=== PATIENT | female | born 1980 | race Caucasian/White ===

== ENCOUNTER 2024-06-19 02:28 | Inpatient (IN) ==
[2024-06-19] MEDS ORDERED: LIDOCAINE 1% LOCAL 20 ML VIAL INFIL PRN (02:58)
[2024-06-19] MEDS: LACTATED RINGER'S 1,000 ML IV PRN (03:15)
--- NOTE | 2024-06-19 03:30 | History & Physical Report ---
Date of Service June 19, 2024 Assessment & Plan (1) Term : Plan: Admit in labor anticipate normal delivery Admission and Anticipated Discharge Date Admission Date: June 19, 2024 History of Present Illness Chief Complaint: leakage of fluid Primary Care Provider: NO PCP 43 F P1001 at 38 weeks presents with onset of spontaneous rupture of membranes with clear fluid and onset of labor. GBS is negative. Allergies Allergy/AdvReac Type Severity Reaction Status Date / Time No Known Allergies Allergy Verified 04/20/21 14:52 Home Medications Medication Instructions Recorded Confirmed Type Benadryl Allergy PO 06/19/24 History 1 tab PO DAILY 06/19/24 06/19/24 History Patient History Surgical History [place] teeth removed Family History Grandfather (Paternal) Prostate cancer Grandfather (Maternal) Prostate cancer Father Diabetes Brother Depression Sister Depression Mother Depression Denies family history of Ovarian cancer Myocardial infarction Breast cancer Colorectal cancer Social History Smoking Status: Never smoker Second Hand Exposure: No; Do You Dip or Chew Tobacco: No; Hx Alcohol Use: No Hx Substance Use: No Preferred Language: Citizen Of The [place] Communication Ability: Effective Visual Impairment: No Limitations Hearing Ability: Normal Applications Developer Required: No Beliefs That Will Affect Care: None marital status: Current Living Situation: Spouse Current Living Situation Comment: spouse, 4yr old son current occupational status: employed 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 How many Children do You have: 1 Other Information That Helps Us Care for You: No Feels Safe at Home: Yes Safety Concerns: Feels Safe At This Time Childhood Exposure to Second-Hand Smoke: No Diet: regular caffeine: Yes during the past year weight has: decreased > 10 lbs Dental Care, Regularly: Yes Physical Activity Frequency: Daily Seatbelt Use: always Sunscreen Use: Yes Assistive Devices: Glasses OB History x1 GUARDIAN AD LITEM History neg Review of Systems All systems reviewed & are unremarkable except as noted in HPI & below Physical Exam Constitutional: WD/WN, vitals as above Eyes: PERRL, conjunctivae normal, anicteric sclerae Respiratory: normal respiratory effort, lungs clear to auscultation Cardiovascular: RRR, no murmur, no edema Gastrointestinal (Abdomen): Inspection/Auscultation: abdomen normal to inspection Musculoskeletal: Extremities: extremities normal to inspection Skin: no rashes, warm and dry Neurologic: patellar DTR's 2+ bilat, sensation intact Psychiatric: A+Ox3, euthymic affect Genitourinary: Manual OB Exam: + cervical dilation 5 cm and 6 cm and + amniotic fluid clear OB Exam Monitor Tracing: + external FHT monitor used, + external uterine monitor used, + category I and + normal FHT variability Results & Data Vital Signs (Past 12 Hours) Vital Signs Pulse Resp BP 06/19/24 03:06 18 06/19/24 02:50 82 114/60 Monitoring External Monitor Cat 1
[2024-06-19 03:46] LABS: Hematocrit (blood only) 36.5 % (37.0-47.0); Hemoglobin 12.6 g/dl (12.0-16.0); Mean Corpuscular Hemoglobin 27.8 pg (25.0-34.0); Mean Corpuscular Hgb Conc 34.5 g/dL (32.0-36.0); Mean Corpuscular Volume 80.6 fL (80.0-100.0); Platelet Count 220 K/uL (130-400); RDW Coefficient of Variation 13.6 % (11.5-14.5); RDW Standard Deviation 39.6 fL (36.4-46.3); Red Blood Count 4.53 M/uL (4.20-5.40); White Blood Count 11.61 K/ul (4.8-10.8)
[2024-06-19] MEDS: OXYTOCIN 30 UNITS/NSS 30 UNITS/500 ML BAG IV PRN (04:02)
[2024-06-19] MEDS ORDERED: OXYTOCIN 30 UNITS/NSS 30 UNITS/500 ML BAG IV PRN (04:13)
[2024-06-19] MEDS ORDERED: HYDROCORTISONE ACETATE 25 MG SUPP PR PRN (04:13)
[2024-06-19] MEDS ORDERED: ACETAMINOPHEN 325 MG TAB PO PRN (04:13)
--- NOTE | 2024-06-19 04:16 | Delivery Summary ---
Vaginal Delivery Summary Date of Service June 19, 2024 Vaginal Delivery Summary live male SHRUTHI over intact perineum with delayed cord clamping and Apgars 8/9 weight pending. Cord blood obtained followed by spontaneous delivery of intact placenta. No tears. QBL 111 ml. Final sponge and instrument counts are correct. Mom and baby stable.
[2024-06-19] MEDS: DIPHTHER/TETAN/PERTUS Vaccine (Tdap, Adol/Adult) 0.5mL IM ONE (04:59)
--- OUTSIDE RECORDS SUMMARY | 2024-06-19 05:30 | External Medical Summary | Summary of Care ---
Author Name Unknown Organization [facility] Address [address] [place] [address] Phone [phone] Care Team Providers Care Platform Consultant Name Role Phone Miladis Germain MD Primary Care Provider Reason for Visit * Reason Comments Return Visit Encounter Details Date Type Department Care Team (Late st Contact Info) Description 06/05/2024 8:00 AM EDT Office Visit Gynecology/Obstetric s Alyce Weiss [address] [place] [address] Rachel Shafer CRNP [address] [place] [id number] Multigravida of advanced maternal age in third trimester*; History of precipitous delivery; Obesity in , antepartum; Family history of cardiac disorder Allergies Active Allergy Reactions Criticality Noted Date Comments Cat Dander 12/21/2023 Dog Dander 12/21/2023 Horse-Derived Products 12/21/2023 documented as of this encounter (statuses as of 06/05/2024) Medications Medication Sig Dispensed Refills Start Date End Date Status diphenhydrAMINE HCl 25 MG Oral Capsule Take 1 Capsule by mouth every 6 hours as needed for Itching. Active 28-0.8 MG Oral Tablet Take by mouth. Active Breast PumpIndications:Breast feeding status of mother Use as directed. 1 Each 04/12/2024 Active documented as of this encounter (statuses as of 06/05/2024) Active Problems Problem Noted Date Diagnosed Date Family history of cardiac disorder 12/21/2023 Overview: FOB born with congenital heart disorder (patent foramen ovale); has never required surgery but has ongoing follow-up for same. MFM recommending echo Last Assessment & Plan: echo not completed today; will obtain additional missing views at next ultrasound exam. Obesity in , antepartum 12/20/2023 Overview: The patient's pre-gravid BMI is 36.89. Class 2 Early glucola ordered. Growth q4w NST weekly starting at 37w Last Assessment & Plan: Low risk NIPT appreciated as well as early 1'GTT. Plan of care reviewed; will schedule serial growth assessments q4-6 weeks. AMA (advanced maternal age) multigravida 35+ 12/2023 Overview: Age 43YO at SHAZIA Considering cffDNA - determining insurance coverage. Declined amniocentesis at this time. Last Assessment & Plan: CONSIDERATIONS: We reviewed the most pertinent aspects of the following: Advanced maternal age (AMA) refers to a woman with a tariq who will be at the age of 35 or older at the estimated time of delivery and may be associated with increased morbidity. After discussion of the genetic screening/testing options, the patient is considering cffDNA screening. Advised to notify [facility] if she desires cffDNA testing to be ordered. Cell-free DNA (cffDNA) screening is a genetic screening option that analyzes maternal blood for DNA that is placental in origin and targets the following conditions: Trisomy 21 (Down syndrome), trisomy 18, trisomy 13, and sex chromosome abnormalities such as monosomy X (Franklin syndrome), and sex chromosome trisomies (triple X, Klinefelter syndrome, XYY). It may also evaluate for other genetic alterations such as microdeletions, depending on the specific test. It reveals the sex of the fetus but should generally not be performed solely for this indication. Results provided are NOT diagnostic, but provide a risk estimate. Types of results include low-risk/negative, high-risk/positive, and inconclusive. Low-risk results convey a low risk for the conditions screened, while high-risk results will indicate which condition is high risk and the likelihood of the condition based on the results. High-risk and inconclusive results would require follow up with a Maternal- Medicine genetic counselor. Amniocentesis would be recommended in the setting of high-risk results. Offer MSAFP only (not Quad Screen) at 16-22 weeks if screening for open neural tube defects is desired. Amniocentesis for diagnosis of chromosomal abnormalities is also available. The risk of complications from the procedure and that risk is 1 in 500 (0.2%). In addition to the risk of chromosomal abnormalities, there is an increased risk of congenital/structural anomalies. RECOMMENDATIONS: Recommend MFM anatomy ultrasound at 19-20 weeks gestation. As patient is 40 or greater at SHAZIA: Recommend delivery by EDC. History of precipitous delivery 12/16/2023 Overview: States was at hospital 45 minutes before baby was born in previous . History of asthma 08/25/2021 Overview: Childhood asthma. Controlled without medications. Allergic rhinitis due to animal hair and dander 08/25/2021 Overview: Allergic to cats Estimated Date of Delivery Comme nts Yes 07/03/2024 Based on Ultraso und documented as of this encounter (statuses as of 06/05/2024) Resolved Problems Problem Noted Date Diagnosed Date Resolved Date Low-lying placenta 02/10/2024 Last Assessment & Plan: Resolved. documented as of this encounter (statuses as of 06/05/2024) Immunizations Name Administration Dates Next Due COVID-19 mRNA, LNP-s, No Pre serve, 2-Dose Series ([employer]) 03/04/2021,02/11/2021 Seasonal Influenza, PF, 6 M & above, IM , (FluLaval or Fluzone) 09/25/2020 Seasonal Influenza, Quadrivalent Hd (Fluzone Hd) 08/11/2021 TDAP (age 10 and older)(Boostrix) 04/12/2024,01/2019 documented as of this encounter Social History Tobacco Use Types Packs/Day Years Used Date Smoking Tobacco: Never Smokeless Tobacco: Never Tobacco Cessation:Counseling Given: Not Answered Alcohol Use Standard Drinks/Week Comments Not Currently 4 (1 standard drink = 0.6 oz pur e alcohol) denies in AUDIT-C Answer Date Recorded Q1: How often do you have a drink containing alcohol? 4 or more times a week 08/25/2021 Q2: How many drinks containi ng alcohol do you have on a typical day when you are drinking? 3 or 4 Q3: How often do you have si x or more drinks on one occasion? Never 08/25/2021 Hunger Vital Sign Answer Date Recorded Within the past 12 months, y ou worried that your food would run out before you got the money to buy more. Never true 11/27/19 24 Within the past 12 months, t he food you bought just didn't last and you didn't have money to get more. Never true 11/27/2023 [place] Depression Scale Answer Date Recorded [place] Depression Scale Total 5 12/16/2023 The thought of harming myself has occurred to me . Never 12/16/2023 Childcare Answer Date Recorded Do you feel overwhelmed with taking care of a child, family member or friend? No 11/27/2023 Does your family need help f inding childcare? (Household - for ages 0-17 years) Not on file 11/27/2023 Clothing Answer Date Recorded Have you been unable to get clothing when it was really needed? No 11/27/2023 Is your family able to get c lothes or diapers when needed? (Household - for ages 0-17 years) Not on file 11/27/2023 Personal Safety Answer Date Recorded Do you feel unsafe or have concerns for your saf ety? No 11/27/2023 Do you have concerns for you r family's safety? (Household - for ages 0-17 years) Not on file 11/27/2023 Utilities Answer Date Recorded Do you have trouble paying y our heating, water, or electric bill? No 11/27/2023 Is your family able to pay t he heat, water, or electric bill? (Household - for ages 0-17 years) Not on file 11/27/2023 Does your family have access to good internet? (Household - for ages 0-17 years) Not on file 11/27/2023 Employment Status Answer Date Recorded Are you unemployed or without regular income? No 11/27/2023 Does the household have a re gular source of income? (Household - for ages 0-17 years) Not on file 11/27/2023 Social Connections Answer Date Recorded How often do you feel lonely or isolated from th ose around you? Never 11/27/2023 Financial Resource Strain Answer Date R ecorded Do you have any trouble payi ng for your medications, or do you think you might in the future? No 11/27/2023 Does your family have troubl e paying for medicine? (Household - for ages 0-17 years) Not on file 11/27/2023 Transportation Needs Answer Date Record ed READ ONLY Do you have troubl e getting a ride to medical visits or work? Never True 11/27/2023 Does your family have a hard time getting a ride to doctors visits? (Household - for ages 0-17 years) Not on file 11/27/2023 Has lack of transportation k ept you from medical appointments, meetings, work, or from getting things needed for daily living? Check all that apply. (Adult - for ages 18 years and over) Not on file 11/27/2023 Do you (or your family) have trouble finding or paying for a ride (transportation)? (Household - for ages 0-17 years) Not on file 11/27/2023 Housing Stability Answer Date Recorded Do you currently live in a s helter or have no steady place to sleep at night? No 11/27/2023 READ ONLY Do you think you a re at risk of becoming homeless? No 11/27/2023 Does your family worry about paying for your home or becoming homeless? (Household - for ages 0-17 years) Not on file 0 11/27/2023 Are you homeless or worried that you might be in the future? (Adult - for ages 18 years and over) Not on file Are you (or your family) naia eless or worried that you might be in the future? (Household - for ages 0-17 years) Not on file Food Insecurity Answer Date Recorded Do you need food for this week? No 11/27/2023 Are you able to get enough f ood for your family? (Household - for ages 0-17 years) Not on file 11/27/2023 Does your family need food t his week? (Household - for ages 0-17 years) Not on file 11/27/2023 Do you always have enough fo od for your family? (Household - for ages 0-17 years) Not on file 11/27/2023 Estimated Date of Delivery Comme nts Yes 07/03/2024 Based on Ultraso und Sex and Gender Information Value Date Recorded Sex Assigned at Female 11/27/2023 10:26 AM EST Gender Identity Female 11/27/2023 10:26 AM EST Sexual Orientation Straight 11/27/2023 10 :26 AM EST Job Start Date Occupation Industry Not on file Not on file Not on file documented as of this encounter Last Filed Vital Signs Vital Sign Reading Time Taken Comments Blood Pressure 108/68 06/05/2024 8:01 AM EDT Pulse - - Temperature - - Respiratory Rate - - Oxygen Saturation - - Inhaled Oxygen Concentration - - Weight 111.2 kg (245 lb 3.2 oz) 06/05/2024 8:01 AM EDT Height 162.6 cm (5' 4") 06/05/2024 8:01 AM EDT Body Mass Index 42.09 06/05/2024 8:01 AM EDT documented in this encounter Progress Notes * Rachel Shafer CRNP - 06/05/2024 8:27 AM EDT 36w Interested in COVID and RSV vaccines. Explained that we do not have COVID vaccines in office. Discussed that RSV vaccines are not being offered yet this calendar year. Baby is moving well. Denies contractions, bleeding, LOF. Would like weekly cervical check per Dr. Hernandez's recommendations last week. To begin weekly NST at 37w. IOL scheduled for 07/02. 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 Name of community service specialist: MATILDA Rivas documented in this encounter Nursing Notes * Nhi Mcbride RN - 06/05/2024 8:02 AM EDT Patient here for RAY 36w0d GBS Would like cervical check today + FM Denies bleeding/fluid leaking documented in this encounter Plan of Treatment Upcoming Encounters Date Type Department Care Team (Late st Contact Info) Description 06/06/2024 8:40 AM EDT Office Visit Family Practice [facility] [address] [place] [address] Miladis Germain MD [address] [place] [address] 06/19/2024 11:15 AM EDT Office Visit Gynecology/Obstetrics [facility] [address] [place] [address] Mayuri Dove CRNP [address] [place] [address] Abhishek Non Stress Tests [facility] [address] [place] [address] 06/26/2024 11:15 AM EDT Office Visit Gynecology/Obstetrics [facility] [address] [place] [address] Mayuri Dove CRNP [address] [place] [address] Abhishek Non Stress Tests [facility] [address] [place] [address] Pending Results Name Type Priority Associated Diagnoses Date /Time GROUP B STREP CULTURE/PCR Lab Routine Multigravida of advanced maternal age in third trimester 06/05/2024 8:53 AM EDT Scheduled Orders Name Type Priority Associated Diagnoses Orde r Schedule GROUP B STREP CULTURE/PCR Lab Routine Multigravida of advanced maternal age in third trimester Expected: 06/05/2024, Expires: 06/05/2025 Health Maintenance Due Date Last Done Comments Pneumococcal Vaccine: Pediatrics (0 to 5 Years) and At-Risk Patients (6 to 64 Years) (1 of 2 - PCV) 1988 Depression Screening 1994 Hepatitis B Vaccine (1 of 3 - 19+ 3-dose series) 2001 Diabetes Screening 10/21/2018 10/21/2015 Lipid Panel 10/21/2020 10/21/2015 Mammogram 2022 COVID-19 Vaccine (3 - 2022-24 season) 2023 03/04/2021, 02/11/2021 Influenza Vaccine (FLU shot) (#1) 2024 08/11/2021, 08/11/2021, 09/25/2020, Additional history exists Pap Smear 12/16/2026 12/16/2023, 03/25/2022 Cervical Cancer Screening 12/16/2028 HPV/Co-Test 12/16/2028 12/16/2023 DTaP,Tdap,and Td Vaccines (3 - Td or Tdap) 04/12/2034 04/12/2024, 05/16/2019 HPV (Gardasil) Vaccine Aged Out No lo nger eligible based on patient's age to complete this topic MENINGOCOCCAL (MENACTRA/MENVEO) Aged Out No longer eligible based on patient's age to complete this topic documented as of this encounter Medical Devices Not on filedocumented as of this encounter Visit Diagnoses Diagnosis Multigravida of advanced maternal age in third trimester- Primary History of precipitous delivery Obesity in , antepartum Obesity complicating , childbirth, or the puerperium, antepartum condition or complication Family history of cardiac disorder Family history of other cardiovascular diseases documented in this encounter Care Teams Platform Consultant Relationship Specialty Start Date End Date Miladis Germain MD [address] [place] [address] PCP - General Internal Medicine 03/25/22 documented as of this encounter
--- OUTSIDE RECORDS SUMMARY | 2024-06-19 05:30 | External Medical Summary | Summary of Care ---
Author Name Unknown Organization [facility] Address [address] [place] [facility] [place] [address] Phone [phone] Care Team Providers Care Cordwood Cutter Name Role Phone Miladis Germain MD Primary Care Provider Reason for Visit * Reason Comments Return Visit Encounter Details Date Type Department Care Team (Late st Contact Info) Description 06/12/2024 10:15 AM EDT Office Visit Gynecology/Obstetric s [facility] [address] [place] [address] Mayuri Dove CRNP [address] [place] [address] Abhishek, Non Stress Tests [facility] [address] [place] [address] High-risk in third trimester*; Multigravida of advanced maternal age in third trimester; History of precipitous delivery; Obesity in , antepartum; Family history of cardiac disorder Allergies Active Allergy Reactions Criticality Noted Date Comments Cat Dander 12/21/2023 Dog Dander 12/21/2023 Horse-Derived Products 12/21/2023 documented as of this encounter (statuses as of 06/12/2024) Medications Medication Sig Dispensed Refills Start Date End Date Status diphenhydrAMINE HCl 25 MG Oral Capsule Take 1 Capsule by mouth every 6 hours as needed for Itching. Active 28-0.8 MG Oral Tablet Take by mouth. Active Breast PumpIndications:Breast feeding status of mother Use as directed. 1 Each 04/12/2024 Active documented as of this encounter (statuses as of 06/12/2024) Active Problems Problem Noted Date Diagnosed Date High-risk 06/12/2024 Family history of cardiac disorder 12/21/2023 Overview: [...] is considering cffDNA screening. Advised to notify MFM if she desires cffDNA testing to be [...] as of this encounter (statuses as of 06/12/2024) Resolved Problems Problem Noted Date Diagnosed Date Resolved Date Low-lying placenta 02/10/2024 Last Assessment & Plan: Resolved. documented as of this encounter (statuses as of 06/12/2024) Immunizations Name Administration Dates Next Due COVID-19 mRNA, LNP-s, No Pre serve, 2-Dose Series ([employer]) 03/04/2021,02/11/2021 Seasonal Influenza, PF, 6 M & above, IM , (FluLaval or Fluzone) 09/25/2020 Seasonal Influenza, Quadrivalent Hd (Fluzone Hd) 08/11/2021 TDAP (age 10 and older)(Boostrix) 04/12/2024,01/2019 documented as of this encounter Social History Tobacco Use Types Packs/Day Years Used Date Smoking Tobacco: Never Smokeless Tobacco: Never Alcohol Use Standard Drinks/Week Comments Not Currently [...] money to get more. Never true 11/27/2023 [place] Depression Scale Answer Date Recorded [place] Depression Scale Total 10 06/05/2024 The thought of harming myself has occurred to me . Never 06/05/2024 Childcare Answer Date Recorded Do you feel [...] on file Are you (or your family) ania eless or worried that you might be [...] Sign Reading Time Taken Comments Blood Pressure 106/70 06/12/2024 10:12 AM EDT Pulse - - Temperature - - Respiratory Rate - - Oxygen Saturation - - Inhaled Oxygen Concentration - - Weight 111.1 kg (245 lb) 06/12/2024 10:12 AM EDT Height 162.6 cm (5' 4") 06/12/2024 10:12 AM EDT Body Mass Index 42.05 06/12/2024 10:12 AM EDT documented in this encounter Progress Notes * Mayuri Dove CRNP - 06/12/2024 10:20 AM EDT 37w0d Baby moving well. Does not think she is having ctx. Denies leaking/bleeding. Requests a cervical exam due to hx of precipitous labor, unchanged from last week. Growth u/s completed on 05/31 with MFM - cephalic, ABIMAEL 16.5 cm, EFW 26th %ile. Desires Mirena IUD , had this in the past. Return in 1 week. Call with signs of labor, decreased FM. 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 Name of decal transferrer: Teresa ASSESSMENT assessment with Non-stress Test completed on 06/12/2024 at 37 weeks gestation for indication of obesity and advanced maternal age heart baseline: 140 bpm Variability: Moderate Decelerations: absent Accelerations: present Contractions: Present x1 NST start time: 1009 NST stop time: 1049 NST strip reviewed, interpreted, and approved by OB provider, MATILDA Zamora . NST strip stored in clinic storage file MATILDA Zamora documented in this encounter Plan of Treatment Upcoming Encounters Date Type Department Care Team (Late st Contact Info) Description 06/19/2024 11:15 AM EDT Office Visit Gynecology/Obstetrics Alyce Weiss [address] [place] [address] Mayuri Dove CRNP [address] [place] [address] Luci Weiss Stress Tests [facility] [address] [place] [address] 06/26/2024 11:15 AM EDT Office Visit Gynecology/Obstetrics Alyce Weiss [address] [place] [address] Mayuri Dove CRNP [address] [place] [address] Luci Weiss Stress Tests [facility] [address] [place] [address] 10/08/2024 5:40 PM EST [facility] [address] [place] [address] Miladis Germain MD [address] [place] [address] Health Maintenance Due Date Last Done Comments Pneumococcal Vaccine: Pediatrics (0 to 5 Years) and At-Risk Patients (6 to 64 Years) (1 of 2 - PCV) 1988 Depression Screening 1994 Hepatitis B Vaccine (1 of 3 - 19+ 3-dose series) 2001 Diabetes Screening 10/21/2018 10/21/2015 Lipid Panel 10/21/2020 10/21/2015 Mammogram 2022 COVID-19 Vaccine (3 - 24 season) 2023 03/04/2021, 02/11/2021 Influenza Vaccine (FLU shot) (#1) 2024 08/11/2021, 08/11/2021, 09/25/2020, Additional history exists Pap Smear 12/16/2026 12/16/2023, 03/25/2022 Cervical Cancer Screening 12/16/2028 HPV/Co-Test 12/16/2028 12/16/2023 DTaP,Tdap,and Td Vaccines (3 - Td or Tdap) 04/12/2034 04/12/2024, 05/16/2019 HIV Screening Discontinued 12/16/2023 Hepatitis C Screening Discontinued 12/16/2023 , 12/16/2023, 12/16/2023 HPV (Gardasil) Vaccine Aged Out No lo nger eligible based on patient's age to complete this topic MENINGOCOCCAL (MENACTRA/MENVEO) Aged Out No longer eligible based on patient's age to complete this topic documented as of this encounter Medical Devices Not on filedocumented as of this encounter Visit Diagnoses Diagnosis High-risk in third trimester- Primary Multigravida of advanced maternal age in third trimester History of precipitous delivery Obesity in , antepartum Obesity complicating , childbirth, or the puerperium, antepartum condition or complication Family history of cardiac disorder Family history of other cardiovascular diseases documented in this encounter Care Teams Cordwood Cutter Relationship Specialty Start Date End Date Miladis Germain MD [address] [place] [address] PCP - General Internal Medicine 03/25/22 documented as of this encounter
--- OUTSIDE RECORDS SUMMARY | 2024-06-19 05:30 | External Medical Summary | Summary of Care ---
Author Name Unknown Organization [facility] Address [address] [facility] [place] [address] Phone [phone] Care Team Providers Care Patient Assessment Coordinator Name Role Phone Miladis Germain MD Primary Care Provider Encounter Details Date Type Department Care Team (Late st Contact Info) Description 06/05/2024 Telephone Gynecology/Obstetrics [facility] [address] [place] [address] Rachel Shafer CRNP [address] [facility] [place] [address] Allergies Active Allergy Reactions Criticality Noted Date [...] is considering cffDNA screening. Advised to notify [facility] if she desires cffDNA testing to be [...] mRNA, LNP-s, No Pre serve, 2-Dose Series ([employer]) 03/04/2021,02/11/2021 Seasonal Influenza, PF, 6 M & [...] money to get more. Never true 11/27/2023 [place] Depression Scale Answer Date Recorded [place] Depression Scale Total 5 12/16/2023 The thought [...] on file documented as of this encounter Miscellaneous Notes * Telephone Encounter - Nhi Mcbride RN - 06/05/2024 8:59 AM EDT Patient scheduled for IOL at [facility] 07/02/2024. Please make provider aware. documented in this encounter Plan of Treatment Upcoming Encounters Date Type Department Care Team (Late st Contact Info) Description 06/06/2024 8:40 AM EDT Office Visit Family Practice [facility] [address] [place] [address] Miladis Germain MD [address] [place] [address] 06/19/2024 11:15 AM EDT Office Visit [facility] [address] [place] [address] Mayuri Dove CRNP [address] [place] [address] Abhishek Non Stress Tests [facility] [address] [place] [address] 06/26/2024 11:15 AM EDT Office [facility] [address] [place] [address] Mayuri Dove CRNP [address] [place] [address] Weiss, Non Stress Tests [facility] [address] [place] [address] Health Maintenance Due Date Last Done Comments Pneumococcal Vaccine: Pediatrics (0 to 5 Years) and At-Risk Patients (6 to 64 Years) (1 of 2 - PCV) 1988 Depression Screening 1994 Hepatitis B Vaccine (1 of 3 - 19+ 3-dose series) 2001 Diabetes Screening 10/21/2018 10/21/2015 Lipid Panel 10/21/2020 10/21/2015 Mammogram 2022 COVID-19 Vaccine ( season) 2023 03/04/2021, 02/11/2021 Influenza Vaccine (FLU [...] Not on filedocumented as of this encounter Care Teams Patient Assessment Coordinator Relationship Specialty Start Date End Date Miladis Germain MD [address] [place] [address] PCP - General Internal Medicine 03/25/22 documented as of this encounter
--- OUTSIDE RECORDS SUMMARY | 2024-06-19 05:30 | External Medical Summary | Summary of Care ---
Author Name Unknown Organization [facility] Address [address] [facility] [place] [address] Phone [phone] Care Team Providers Care Scraper Operator Name Role Phone Miladis Germain MD Primary Care Provider Encounter Details Date Type Department Care Team (Late st Contact Info) Description 06/05/2024 Telephone Gynecology/Obstetrics [facility] [address] [place] [address] Rachel Shafer CRNP [address] [facility] [address] Allergies Active Allergy Reactions Criticality Noted Date Comments Cat Dander 12/21/2023 Dog Dander 12/21/2023 Horse-Derived Products 12/21/2023 documented as of this encounter (statuses as of 06/07/2024) Medications Medication Sig Dispensed Refills Start Date End Date Status diphenhydrAMINE HCl 25 MG Oral Capsule Take 1 Capsule by mouth every 6 hours as needed for Itching. Active 28-0.8 MG Oral Tablet Take by mouth. Active Breast PumpIndications:Breast feeding status of mother Use as directed. 1 Each 04/12/2024 Active documented as of this encounter (statuses as of 06/07/2024) Active Problems Problem Noted Date Diagnosed Date [...] is considering cffDNA screening. Advised to notify [facility] if she desires cffDNA testing to [...] as of this encounter (statuses as of 06/07/2024) Resolved Problems Problem Noted Date Diagnosed Date Resolved Date Low-lying placenta 02/10/2024 Last Assessment & Plan: Resolved. documented as of this encounter (statuses as of 06/07/2024) Immunizations Name Administration Dates Next Due COVID-19 mRNA, LNP-s, No Pre serve, 2-Dose Series ([employer]) 03/04/2021,02/11/2021 Seasonal Influenza, PF, 6 M & [...] money to get more. Never true 11/27/2023 [place] Depression Scale Answer Date Recorded [place] Depression Scale Total 10 06/05/2024 The thought [...] encounter Miscellaneous Notes * Telephone Encounter - Jayna Azevedo OSA - 06/07/2024 8:59 AM EDT In EPIC and OR book * Telephone Encounter - Nhi Mcbride RN - 06/05/2024 8:59 AM EDT Patient scheduled for IOL at [facility] 07/02/2024. Please make provider aware. documented in this encounter Plan of Treatment Upcoming Encounters Date Type Department Care Team (Late st Contact Info) Description 06/12/2024 10:15 AM EDT Office Visit Gynecology/Obstetrics Alyce Weiss [address] [place] [address] Mayuri Dove CRNP [address] [place] [address] Abhishek Non Stress Tests [facility] [address] [place] [address] 06/19/2024 11:15 AM EDT Office Visit Gynecology/Obstetrics Alyce Weiss [address] [place] [address] Mayuri Dove CRNP [address] [place] [address] Weiss, Non Stress Tests [facility] [address] [place] [address] 06/26/2024 11:15 AM EDT Office Visit Gynecology/Obstetrics Alyce Weiss [address] [place] [address] Backer, MATILDA Rolon [address] [place] [address] Abhishek Non Stress Tests [facility] [address] [place] [address] 10/08/2024 5:40 PM EST [facility] [address] [place] [address] Miladis Germain MD [address] [place] [address] Health Maintenance Due Date Last Done Comments Pneumococcal Vaccine: Pediatrics (0 to 5 Years) and At-Risk Patients (6 to 64 Years) (1 of 2 - PCV) 1988 Depression Screening 1994 Hepatitis B Vaccine (1 of 3 - 19+ 3-dose series) 2001 Diabetes Screening 10/21/2018 10/21/2015 Lipid Panel 10/21/2020 10/21/2015 Mammogram 2022 COVID-19 Vaccine (3 - 2022- season) 2023 03/04/2021, 02/11/2021 Influenza Vaccine (FLU [...] filedocumented as of this encounter Care Teams Scraper Operator Relationship Specialty Start Date End Date Miladis Germain MD [address] [facility] [place] [address] PCP - General Internal Medicine 03/25/22 documented as of this encounter
--- OUTSIDE RECORDS SUMMARY | 2024-06-19 05:30 | External Medical Summary | Summary of Care ---
Author Name Unknown Organization [facility] Address [address] [place] [facility] [place] [address] Phone [phone] Care Team Providers Care Safety Technician Name Role Phone Miladis Germain MD Primary Care Provider Reason for Visit * Reason Comments Return Visit Encounter Details Date Type Department Care Team (Late st Contact Info) Description 06/05/2024 8:00 AM EDT Office Visit Gynecology/Obstetric s Alyce Weiss [address] [place] [address] Rachel Shafer CRNP [address] [place] [address] Multigravida of advanced maternal age in third [...] is considering cffDNA screening. Advised to notify [facility] if she desires cffDNA testing to [...] mRNA, LNP-s, No Pre serve, 2-Dose Series ([place]) 03/04/2021,02/11/2021 Seasonal Influenza, PF, 6 M & [...] money to get more. Never true 11/27/2023 [place] Depression Scale Answer Date Recorded [place] Depression Scale Total 5 12/16/2023 The thought [...] NST at 37w. IOL scheduled for 07/02. Keg Raiser Documentation Provider requested chick grader. Name of chick grader: MATILDA Rivas documented in this encounter Nursing Notes * Nhi Mcbride RN - 06/05/2024 8:02 AM EDT Patient here for RAY 36w0d GBS Would like cervical check today + FM Denies bleeding/fluid leaking documented in this encounter Plan of Treatment Upcoming Encounters Date Type Department Care Team (Late st Contact Info) Description 06/06/2024 8:40 AM EDT Office Visit Family Practice [facility] [address] [place] [address] Miladis Germain MD [address] [place] [address] 06/19/2024 11:15 AM EDT Office Visit Gynecology/Obstetrics [facility] [address] [place] [address] Mayuri Dove CRNP [address] [place] [address] Abhishek Non Stress Tests [facility] [address] [place] [address] 06/26/2024 11:15 AM EDT Office Visit Gynecology/Obstetrics [facility] [address] [place] [address] Mayuri Dove CRNP [address] [place] [address] Abhishek Non Stress Tests [facility] [address] [place] [address] Pending Results Name Type Priority Associated Diagnoses [...] diseases documented in this encounter Care Teams Safety Technician Relationship Specialty Start Date End Date Miladis Germain MD [address] [place] [address] PCP - General Internal Medicine 03/25/22 documented as of this encounter
--- OUTSIDE RECORDS SUMMARY | 2024-06-19 05:31 | External Medical Summary | Summary of Care ---
Author Name Unknown Organization [facility] Address [address] [place] [address] Phone [phone] Care Team Providers Care Ore Charger Name Role Phone Miladis Germain MD Primary Care Provider Encounter Details Date Type Department Care Team (Late st Contact Info) Description 05/31/2024 8:45 AM EDT Office Visit [facility]st[facility]aternal [facility], [address] [address] Mariama Sarkar, DO [address] [place], [place] [id number] Obesity in , antepartum*; Multigravida of advanced maternal age in third trimester; Ultrasound for screening for growth restriction; 35 weeks gestation of Allergies Active Allergy Reactions Criticality Noted Date Comments Cat Dander 12/21/2023 Dog Dander 12/21/2023 Horse-Derived Products 12/21/2023 documented as of this encounter (statuses as of 06/01/2024) Medications Medication Sig Dispensed Refills Start Date End Date Status diphenhydrAMINE HCl 25 MG Oral Capsule Take 1 Capsule by mouth every 6 hours as needed for Itching. Active 28-0.8 MG Oral Tablet Take by mouth. Active Breast PumpIndications:Breast feeding status of mother Use as directed. 1 Each 04/12/2024 Active documented as of this encounter (statuses as of 06/01/2024) Active Problems Problem Noted Date Diagnosed Date Family history of cardiac disorder 12/21/2023 Overview: FOB born with congenital heart disorder (patent foramen ovale); has never required surgery but has ongoing follow-up for same. M recommending echo Last Assessment & Plan: echo [...] considering cffDNA screening. Advised to notify [facility] if she desires cffDNA testing to be [...] as of this encounter (statuses as of 06/01/2024) Resolved Problems Problem Noted Date Diagnosed Date Resolved Date Low-lying placenta 02/10/2024 Last Assessment & Plan: Resolved. documented as of this encounter (statuses as of 06/01/2024) Immunizations Name Administration Dates Next Due COVID-19 mRNA, LNP-s, No Pre serve, 2-Dose Series ([employer]) 03/04/2021,02/11/2021 Seasonal Influenza, PF, 6 M & [...] money to get more. Never true 11/27/2023 [place] Depression Scale Answer Date Recorded [place] Depression Scale Total 5 12/16/2023 The thought [...] on file documented as of this encounter Progress Notes * Mariama Sarkar DO - 06/01/2024 8:37 AM EDT Yoselin presented for an ultrasound for the following indications: Obesity in , antepartum Multigravida of advanced maternal age in third trimester Ultrasound for screening for growth restriction 35 weeks gestation of Ultrasound summary: Patient presented at 35w 2d for growth assessment. Normal growth with EFW 2431 g at 26%ile. Normal ABIMAEL at 16.5 cm. Cephalic presentation. I reviewed the ultrasound images. Yoselin was given the opportunity to meet with me if she had any questions. Please refer to the ultrasound report for additional details about today's ultrasound examination. RECOMMENDATIONS: Follow up with MFM for ultrasound as clinically indicated. See prior formal MFM consultation note. Thank you for allowing us to participate in the care of this patient. Please call with any questions. Mariama Sarkar DO 06/01/2024 8:37 AM documented in this encounter Plan of Treatment Upcoming Encounters Date Type Department Care Team (Late st Contact Info) Description 06/05/2024 8:00 AM EDT Office Visit Gynecology/Obstetrics Alyce Weiss [address] [place] [address] Rachel Shafer CRNP [address] [place] [address] 06/06/2024 8:40 AM EDT Office Visit Family Practice [facility] [address] [place] [address] Miladis Germain MD [address] [place] [address] 06/12/2024 8:00 AM EDT Office Visit Gynecology/Obstetrics [facility] [address] [place] [address] Rachel Shafer CRNP [address] [place] [address] 06/19/2024 8:00 AM EDT Office Visit Gynecology/Obstetrics [facility] [address] [place] [address] Rachel Shafer CRNP [address] [place] [address] 06/26/2024 8:30 AM EDT Office Visit Gynecology/Obstetrics [facility] [address] [place] [address] Mayuri Dove CRNP [address] [place] [address] Health Maintenance Due Date Last Done Comments Pneumococcal Vaccine: Pediatrics (0 to 5 Years) and At-Risk Patients (6 to 64 Years) (1 of 2 - PCV) 1988 Depression Screening 1994 Hepatitis B Vaccine (1 of 3 - 19+ 3-dose series) 2001 Diabetes Screening 10/21/2018 10/21/2015 Lipid Panel 10/21/2020 10/21/2015 Mammogram 2022 COVID-19 Vaccine (3 - season) 2023 03/04/2021, 02/11/2021 Influenza Vaccine (FLU [...] as of this encounter Visit Diagnoses Diagnosis Obesity in , antepartum- Primary Obesity complicating , childbirth, or the puerperium, antepartum condition or complication Multigravida of advanced maternal age in third trimester Ultrasound for screening for growth restriction screening for growth retardation using ultrasonics 35 weeks gestation of state, incidental documented in this encounter Care Teams Ore Charger Relationship Specialty Start Date End Date Miladis Germain MD [address] [place] [address] PCP - General Internal Medicine 03/25/22 documented as of this encounter
--- OUTSIDE RECORDS SUMMARY | 2024-06-19 05:31 | External Medical Summary | Summary of Care ---
Author Name Unknown Organization [facility] Address [address] [place] [address] Phone [phone] Care Team Providers Care Diamond Sizer Name Role Phone Miladis Germain MD Primary Care Provider Reason for Visit * Reason Onset Date Comments Medication Refill 05/08/2024 Encounter Details Date Type Department Care Team (Late st Contact Info) Description 05/08/2024 Refill Family Practice [facility] [address] [employer] [facility] [place] [address] Miladis Germain MD [address] [place] [address] Allergies Active Allergy Reactions Criticality Noted Date Comments Cat Dander 12/21/2023 Dog Dander 12/21/2023 Horse-Derived Products 12/21/2023 documented as of this encounter (statuses as of 05/09/2024) Medications Medication Sig Dispensed Refills Start Date End Date Status diphenhydrAMINE HCl 25 MG Oral Capsule Take 1 Capsule by mouth every 6 hours as needed for Itching. Active 28-0.8 MG Oral Tablet Take by mouth. Active Breast PumpIndications:Breast feeding status of mother Use as directed. 1 Each 04/12/2024 Active documented as of this encounter (statuses as of 05/09/2024) Active Problems Problem Noted Date Diagnosed Date Low-lying placenta 02/10/2024 Last Assessment & Plan: Resolved. Family history of cardiac disorder 12/21/2023 Overview: [...] is considering cffDNA screening. Advised to notify [facility] if she desires cffDNA testing to be [...] as of this encounter (statuses as of 05/09/2024) Immunizations Name Administration Dates Next Due COVID-19 mRNA, LNP-s, No Pre serve, 2-Dose Series ([employer]) 03/04/2021,02/11/2021 Seasonal Influenza, PF, 6 M & [...] money to get more. Never true 11/27/2023 [place] Depression Scale Answer Date Recorded [place] Depression Scale Total 5 12/16/2023 The thought [...] on file documented as of this encounter Plan of Treatment Upcoming Encounters Date Type Department Care Team (Late st Contact Info) Description 05/31/2024 8:45 AM EDT Imaging Maternal Medicine Imaging, [facility] [address] [place] [address] 05/31/2024 4:00 PM EDT Office Visit Gynecology/Obstetrics [facility] [address] [place] [address] Golden Hernandez MD [address] [place] [address] 06/05/2024 8:00 AM EDT Office Visit Gynecology/Obstetrics [facility] [address] [place] [address] Rachel Shafer CRNP [address] [place] [address] 06/06/2024 8:40 AM EDT Office Visit Family Practice [facility] [address] [place] [address] Miladis Germain MD [address] [place] [address] 06/12/2024 8:00 AM EDT Office Visit Gynecology/Obstetrics [facility] [address] [place] [address] Rachel Shafer CRNP [address] [place] [address] 06/19/2024 8:00 AM EDT Office Visit Gynecology/Obstetrics Alyce Weiss [address] [place] [address] Rachel Shafer CRNP [address] [place] [address] 06/26/2024 8:30 AM EDT Office Visit Gynecology/Obstetrics Alyce [facility]elezs [address] [place] [address] Mayuri Dove CRNP [address] [place] [address] Health Maintenance Due Date Last Done Comments Pneumococcal Vaccine: Pediatrics (0 to 5 Years) and At-Risk Patients (6 to 64 Years) (1 of 2 - PCV) 1988 Depression Screening 1994 Hepatitis B (1 of 3 - 19+ 3-dose series) 2001 Diabetes Screening 10/21/2018 10/21/2015 Lipid Panel 10/21/2020 10/21/2015 Mammogram 2022 COVID-19 Vaccine ( season) 2023 03/04/2021, 02/11/2021 Influenza Vaccine (FLU shot) (Season Ended) 2024 08/11/2021, 08/11/2021, 09/25/2020, Additional history exists Pap Smear 12/16/2026 12/16/2023, 03/25/2022 Cervical Cancer Screening 12/16/2028 HPV/Co-Test 12/16/2028 12/16/2023 DTaP,Tdap,and Td Vaccines (3 - Td or Tdap) 04/12/2034 04/12/2024, 05/16/2019 GARDASIL-HPV IMMUNIZATION SERIES Aged Out No longer eligible based on patient's age to complete this topic MENINGOCOCCAL (MENACTRA/MENVEO) Aged Out No longer eligible based on patient's age to complete this topic documented as of this encounter Medical Devices Not on filedocumented as of this encounter Care Teams Diamond Sizer Relationship Specialty Start Date End Date Miladis Germain MD [address] [place] [address] PCP - General Internal Medicine 03/25/22 documented as of this encounter
--- OUTSIDE RECORDS SUMMARY | 2024-06-19 05:31 | External Medical Summary | Summary of Care ---
Author Name Unknown Organization [facility] Address [address] [place] [address] Phone [phone] Care Team Providers Care Property Assistant Name Role Phone Miladis Germain MD Primary Care Provider Reason for Visit * Reason Comments Return Visit Encounter Details Date Type Department Care Team (Late st Contact Info) Description 05/31/2024 4:00 PM EDT Office Visit Gynecology/Obstetric s Alyce Weiss [address] [place] [address] Golden Hernandez MD [address] [place] [address] Multigravida of advanced maternal age in third trimester*; History of precipitous delivery; Obesity in , antepartum; Family history of cardiac disorder; Low-lying placenta Allergies Active Allergy Reactions Criticality Noted Date Comments Cat Dander 12/21/2023 Dog Dander 12/21/2023 Horse-Derived Products 12/21/2023 documented as of this encounter (statuses as of 05/31/2024) Medications Medication Sig Dispensed Refills Start Date End Date Status diphenhydrAMINE HCl 25 MG Oral Capsule Take 1 Capsule by mouth every 6 hours as needed for Itching. Active 28-0.8 MG Oral Tablet Take by mouth. Active Breast PumpIndications:Breast feeding status of mother Use as directed. 1 Each 04/12/2024 Active documented as of this encounter (statuses as of 05/31/2024) Active Problems Problem Noted Date Diagnosed Date [...] is considering cffDNA screening. Advised to notify [facility] if she desires cffDNA testing to [...] as of this encounter (statuses as of 05/31/2024) Immunizations Name Administration Dates Next Due COVID-19 mRNA, LNP-s, No Pre serve, 2-Dose Series ([employer]) 03/04/2021,02/11/2021 Seasonal Influenza, PF, 6 M & [...] money to get more. Never true 11/27/2023 [place] Depression Scale Answer Date Recorded [place] Depression Scale Total 5 12/16/2023 The thought [...] Sign Reading Time Taken Comments Blood Pressure 114/76 05/31/2024 4:04 PM EDT Pulse - - Temperature - - Respiratory Rate - - Oxygen Saturation - - Inhaled Oxygen Concentration - - Weight 110.9 kg (244 lb 9.6 oz) 05/31/2024 4:04 PM EDT Height - - Body Mass Index 41.99 05/08/2024 7:55 AM EDT documented in this encounter Progress Notes * Golden Hernandez MD - 05/31/2024 4:28 PM EDT Patient was seen for a routine visit. Patient states movements good. Patient is concerned about precipitous delivery. Patient was advised to get weekly pelvic exams starting at 36 weeks. Patient was also advised to come to the hospital early if there is any chance that she is in labor. We discussed vaccines during including RSV vaccine. * Justine Ngo LPN - 05/31/2024 4:05 PM EDT 35w2d Denies vaginal bleeding/rom + movement Wanted to discuss what to expect with labor and delivery Discuss covid vaccines & RSV vaccines documented in this encounter Plan of Treatment Upcoming Encounters Date Type Department Care Team (Late st Contact Info) Description 06/05/2024 8:00 AM EDT Office Visit Gynecology/Obstetrics [facility] [address] [place] [address] Rachel Shafer CRNP [address] [place] [address] 06/06/2024 8:40 AM EDT Office Visit Family Practice [facility] [address] [place] [address] Miladis Germain MD [address] [place] [address] 06/12/2024 8:00 AM EDT Office Visit Gynecology/Obstetrics [facility] [address] [place] [address] Rachel Shafer CRNP [address] [place] [address] 06/19/2024 8:00 AM EDT Office Visit Gynecology/Obstetrics [facility] [address] [place] [address] Rachel Shafer CRNP [address] [place] [address] 06/26/2024 8:30 AM EDT Office Visit Gynecology/Obstetrics [facility] [address] [place] [address] Mayuri Dove CRNP [address] [place] [address] Health Maintenance Due Date Last Done Comments Pneumococcal Vaccine: Pediatrics (0 to 5 Years) and At-Risk Patients (6 to 64 Years) (1 of 2 - PCV) 1988 Depression Screening 1994 Hepatitis B Vaccine (1 of 3 - 19+ 3-dose series) 2001 Diabetes Screening 10/21/2018 10/21/2015 Lipid Panel 10/21/2020 10/21/2015 Mammogram 2022 COVID-19 Vaccine (3 - 2023-24 season) 2023 03/04/2021, 02/11/2021 Influenza Vaccine (FLU [...] disorder Family history of other cardiovascular diseases Low-lying placenta Hemorrhage from placenta previa, unspecified as to episode of care documented in this encounter Care Teams Property Assistant Relationship Specialty Start Date End Date Miladis Germain MD [address] [place] [address] PCP - General Internal Medicine 03/25/22 documented as of this encounter
--- OUTSIDE RECORDS SUMMARY | 2024-06-19 05:31 | External Medical Summary | Summary of Care ---
Author Name Unknown Organization [facility] Address [address] [place] [place] [address] Phone [phone] Care Team Providers Care Printed Circuit Board Panels Developer Name Role Phone Miladis Germain MD Primary Care Provider Reason for Visit * Reason Comments Return Visit Encounter Details Date Type Department Care Team (Late st Contact Info) Description 05/08/2024 8:00 AM EDT Office Visit Gynecology/Obstetric s Alyce Weiss [address] [place] [address] Rachel Shafer CRNP [address] [facility] [place] [address] Multigravida of advanced maternal age in third trimester*; History of precipitous delivery; Obesity in , antepartum; Family history of cardiac disorder; Low-lying placenta Allergies Active Allergy Reactions Criticality Noted Date Comments Cat Dander 12/21/2023 Dog Dander 12/21/2023 Horse-Derived Products 12/21/2023 documented as of this encounter (statuses as of 05/08/2024) Medications Medication Sig Dispensed Refills Start Date End Date Status diphenhydrAMINE HCl 25 MG Oral Capsule Take 1 Capsule by mouth every 6 hours as needed for Itching. Active 28-0.8 MG Oral Tablet Take by mouth. Active Breast PumpIndications:Breast feeding status of mother Use as directed. 1 Each 04/12/2024 Active documented as of this encounter (statuses as of 05/08/2024) Active Problems Problem Noted Date Diagnosed Date [...] is considering cffDNA screening. Advised to notify [facility] if she desires cffDNA testing to [...] as of this encounter (statuses as of 05/08/2024) Immunizations Name Administration Dates Next Due COVID-19 mRNA, LNP-s, No Pre serve, 2-Dose Series (Azima) 03/04/2021,02/11/2021 Seasonal Influenza, PF, 6 M & [...] money to get more. Never true 11/27/2023 [place] Depression Scale Answer Date Recorded [place] Depression Scale Total 5 12/16/2023 The thought [...] Sign Reading Time Taken Comments Blood Pressure 114/68 05/08/2024 7:55 AM EDT Pulse - - Temperature - - Respiratory Rate - - Oxygen Saturation - - Inhaled Oxygen Concentration - - Weight 109.3 kg (241 lb) 05/08/2024 7:55 AM EDT Height 162.6 cm (5' 4") 05/08/2024 7:55 AM EDT Body Mass Index 41.37 05/08/2024 7:55 AM EDT documented in this encounter Progress Notes * Rachel Shafer CRNP - 05/08/2024 8:23 AM EDT 32w Has a lot of questions regarding delivery, IOL vs c/s vs spontaneous labor. Recommend appt with physician to discuss, as her specific questions are not able to be answered by this provider. Placenta no longer low-lying. Questions about timing of COVID vaccine- recommend discussing with PCP. Baby is active. No contractions that she can tell, no bleeding or LOF. MATILDA Foster documented in this encounter Nursing Notes * Teresa Kyle LPN - 05/08/2024 7:56 AM EDT 32w0d Trouble sleeping last week Anxious about Labor and delivering When to get a covid booster along with and son documented in this encounter Plan of Treatment Upcoming Encounters Date Type Department Care Team (Late st Contact Info) Description 05/31/2024 8:45 AM EDT Imaging Maternal Medicine Imaging, [facility] [address] [place] [address] 05/31/2024 4:00 PM EDT Office Visit Gynecology/Obstetrics [facility] [address] [place] [address] Golden Hernandez MD [address] [place] [address] 06/05/2024 8:00 AM EDT Office [facility] [address] [place] [address] Rachel Shafer CRNP [address] [place] [address] 06/06/2024 8:40 AM EDT Office Visit Family Practice [facility] [address] [place] [address] Miladis Germain MD [address] [place] [address] 06/12/2024 8:00 AM EDT Office [facility] [address] [place] [address] Rachel Shafer CRNP [address] [place] [address] 06/19/2024 8:00 AM EDT Office Visit [facility] [address] [place] [address] Rachel Shafer CRNP [address] [place] [address] 06/26/2024 8:30 AM EDT Office Visit Gynecology/Obstetrics [facility] [address] [place] [address] Mayuri Dove CRNP [address] [place] [address] Health Maintenance Due Date Last Done Comments [...] care documented in this encounter Care Teams Printed Circuit Board Panels Developer Relationship Specialty Start Date End Date Miladis Germain MD [address] [place] [address] PCP - General Internal Medicine 03/25/22 documented as of this encounter
--- OUTSIDE RECORDS SUMMARY | 2024-06-19 05:31 | External Medical Summary | Summary of Care ---
Author Name Unknown Organization [facility] Address [address] [place] [address] Phone [phone] Care Team Providers Care Racetrack Steward Name Role Phone Miladis Germain MD Primary Care Provider Encounter Details Date Type Department Care Team (Late st Contact Info) Description 05/31/2024 8:45 AM EDT Office Visit Outside Sales Engineer Obstetrics Maternal Medicine, [address] [address] Mariama Sarkar, DO [address] [place], [place] [phone] Obesity in , antepartum*; Multigravida of advanced [...] is considering cffDNA screening. Advised to notify [facility] if she desires cffDNA testing to [...] mRNA, LNP-s, No Pre serve, 2-Dose Series (Semmle) 03/04/2021,02/11/2021 Seasonal Influenza, PF, 6 M & [...] money to get more. Never true 11/27/2023 [place] Depression Scale Answer Date Recorded [place] Depression Scale Total 5 12/16/2023 The [...] Gynecology/Obstetrics Alyce Weiss [address] [place] [address] Rachel Shafer CRNP [address] [place] [address] 06/06/2024 8:40 AM EDT Office Visit Family Practice [facility] [address] [place] [address] Miladis Germain MD [address] [place] [address] 06/12/2024 8:00 AM EDT Office Visit Gynecology/Obstetrics [facility] [address] [place] [address] Rachel Shafer CRNP [address] [place] [address] 06/19/2024 8:00 AM EDT Office Visit Gynecology/Obstetrics [facility] [address] [place] [address] Rachel Shafer CRNP [address] [place] [address] 06/26/2024 8:30 AM EDT Office Visit Gynecology/Obstetrics [facility] [address] [place] [address] Mayuri Dove CRNP [address] [place] [address] Health Maintenance Due Date Last Done Comments [...] incidental documented in this encounter Care Teams Racetrack Steward Relationship Specialty Start Date End Date Miladis Germain MD [address] [place] [address] PCP - General Internal Medicine 03/25/22 documented as of this encounter
--- OUTSIDE RECORDS SUMMARY | 2024-06-19 05:31 | External Medical Summary ---
Author Name Unknown Address Unknown Organization K01:[facility] [place] [address] [place] [address] Laboratory Report Ordering Provider Test Date Status JUDITH CARVALHO 06/05/2024 08:53:17 Final Observation Date Value Abnormality Reference (Units ) Status Streptococcus agalactiae DNA [Presence] in Specimen by KENNETH with probe detection 06/05/2024 08:53:17 Negative Negative Final No Group B Streptococcus det ected by culture-enhanced PCR (amplified probe). GBS GBSCT - [facility] 06/05/2024 08:53:17 0.0 Final GBS SPCCT - [facility] 06/05/2024 08:53:17 30.7 Final Performing Location [facility] - [address] [place] [address]
--- OUTSIDE RECORDS SUMMARY | 2024-06-19 05:31 | External Medical Summary | Summary of Care ---
Author Name Unknown Organization [facility] Address [address] [place] [address] Phone [phone] Care Team Providers Care Hardwood Flooring Specialist Name Role Phone Miladis Germain MD Primary Care Provider Encounter Details Date Type Department Care Team (Late st Contact Info) Description 05/03/2024 9:30 AM EDT Office Visit Surveying Crew Rodman Obstetrics Maternal Medicine, [address] [address] Mariama Sarkar, DO [address] [place], [place] [phone] Obesity in , antepartum*; Low-lying placenta Allergies Active Allergy Reactions Criticality Noted Date Comments Cat Dander 12/21/2023 Dog Dander 12/21/2023 Horse-Derived Products 12/21/2023 documented as of this encounter (statuses as of 05/04/2024) Medications Medication Sig Dispensed Refills Start Date End Date Status diphenhydrAMINE HCl 25 MG Oral Capsule Take 1 Capsule by mouth every 6 hours as needed for Itching. Active 28-0.8 MG Oral Tablet Take by mouth. Active Breast PumpIndications:Breast feeding status of mother Use as directed. 1 Each 04/12/2024 Active documented as of this encounter (statuses as of 05/04/2024) Active Problems Problem Noted Date Diagnosed Date [...] is considering cffDNA screening. Advised to notify [facility] if she desires cffDNA testing to [...] as of this encounter (statuses as of 05/04/2024) Immunizations Name Administration Dates Next Due COVID-19 mRNA, LNP-s, No Pre serve, 2-Dose Series (iLost) 03/04/2021,02/11/2021 Seasonal Influenza, PF, 6 M & [...] money to get more. Never true 11/27/2023 [place] Depression Scale Answer Date Recorded [place] Depression Scale Total 5 12/16/2023 The thought [...] Progress Notes * Mariama Sarkar DO - 05/04/2024 9:23 AM EDT Yoselin presented for an ultrasound for the following indications: Obesity in , antepartum Low-lying placenta Assessment & Plan: Resolved. Ultrasound summary: Patient presented at 31w 2d for growth assessment. Normal growth with EFW 1618 g at 21%ile. Normal ABIMAEL at 16.2 cm. Transverse presentation. Placenta is no longer low lying. I reviewed the ultrasound images. Yoselin was given the opportunity to meet with me if she had any questions. Please refer to the ultrasound report for additional details about today's ultrasound examination. RECOMMENDATIONS: Recommend follow up ultrasound with MFM in 4-6 weeks for growth secondary to above indications. See prior formal MFM consultation note. Thank you for allowing us to participate in the care of this patient. Please call with any questions. Mariama Sarkar DO 05/04/2024 9:23 AM documented in this encounter Miscellaneous Notes * Assessment & Plan Note - Mariama Sarkar DO - 05/04/2024 9:23 AM EDT Associated Problem(s): Low-lying placenta Resolved. documented in this encounter Plan of Treatment Upcoming Encounters Date Type Department Care Team (Late st Contact Info) Description 05/08/2024 8:00 AM EDT [facility] [address] [place] [address] Rachel Shafer CRNP [address] [place] [address] 05/29/2024 8:00 AM EDT Office Visit Gynecology/Obstetrics [facility] [address] [place] [address] Rachel Shafer CRNP [address] [place] [address] 05/31/2024 8:45 AM EDT [facility] [address] [address] 06/05/2024 8:00 AM EDT Office Visit Gynecology/Obstetrics [facility] [address] [place] [address] Rachel Shafer CRNP [address] [place] [address] 06/06/2024 8:40 AM EDT Office Visit Family Practice [facility] [address] [place] [address] Miladis Germain MD [address] [place] [address] 06/12/2024 8:00 AM EDT Office Visit Gynecology/Obstetrics [facility] [address] [place] [address] Rachel Shafer CRNP [address] [place] [address] 06/19/2024 8:00 AM EDT Office Visit Gynecology/Obstetrics [facility] [address] [place] [address] Rachel Shafer CRNP [address] [place] [address] 06/26/2024 8:30 AM EDT Office Visit Gynecology/Obstetrics Alyce Weiss [address] [place] [address] Mayuri Dove CRNP [address] [place] [address] Health Maintenance Due Date Last Done Comments [...] or the puerperium, antepartum condition or complication Low-lying placenta Hemorrhage from placenta previa, unspecified as to episode of care documented in this encounter Care Teams Hardwood Flooring Specialist Relationship Specialty Start Date End Date Miladis Germain MD [address] [place] [place] [address] PCP - General Internal Medicine 03/25/22 documented as of this encounter
--- OUTSIDE RECORDS SUMMARY | 2024-06-19 05:31 | External Medical Summary | Summary of Care ---
Author Name Unknown Organization [facility] Address [address] [place] [address] Phone [phone] Care Team Providers Care Superintendent Oil Field Drilling Name Role Phone Miladis Germain MD Primary Care Provider Encounter Details Date Type Department Care Team (Late st Contact Info) Description 05/03/2024 9:30 AM EDT Office Visit Cloth Opener Hand Obstetrics Maternal Medicine, [address] [address] Mariama Sarkar, DO [address] [place], [place] [phone] Obesity in , antepartum*; Low-lying placenta Allergies [...] mRNA, LNP-s, No Pre serve, 2-Dose Series (Sightlogix) 03/04/2021,02/11/2021 Seasonal Influenza, PF, 6 M & [...] money to get more. Never true 11/27/2023 [place] Depression Scale Answer Date Recorded [place] Depression Scale Total 5 12/16/2023 The thought [...] 05/08/2024 8:00 AM EDT Office [facility] [address] [place] [address] Rachel Shafer CRNP [address] [place] [address] 05/29/2024 8:00 AM EDT Office Visit Gynecology/Obstetrics [facility] [address] [place] [address] Rachel Shafer CRNP [address] [place] [address] 05/31/2024 8:45 AM EDT [facility] [address] [place] [address] 06/05/2024 8:00 AM EDT Office Visit Gynecology/Obstetrics [facility] [address] [place] [address] Rachel Shafer CRNP [address] [place] [address] 06/06/2024 8:40 AM EDT Office Visit Family Practice [facility] [address] [place] [address] Miladis Germain MD [address] [place] [address] 06/12/2024 8:00 AM EDT Office Visit Gynecology/Obstetrics [facility] [address] [place] [address] Rachel Shafer CRNP [address] [place] [address] 06/19/2024 8:00 AM EDT Office Visit Gynecology/Obstetrics [facility] [address] [place] [address] Rachel Shafer CRNP [address] [place] [address] 06/26/2024 8:30 AM EDT Office Visit Gynecology/Obstetrics Alyce Weiss [address] [place] [address] Mayuri Dove CRNP [address] [place] [address] Health Maintenance Due Date Last Done Comments [...] care documented in this encounter Care Teams Superintendent Oil Field Drilling Relationship Specialty Start Date End Date Miladis Germain MD [address] [place] [address] PCP - General Internal Medicine 03/25/22 documented as of this encounter
--- OUTSIDE RECORDS SUMMARY | 2024-06-19 05:31 | External Medical Summary | Summary of Care ---
Author Name Unknown Organization [facility] Address [address] [place] [facility] [place] [address] Phone [phone] Care Team Providers Care Filler Blender Name Role Phone Miladis Germain MD Primary Care Provider Reason for Visit * Reason Comments Return Visit Encounter Details Date Type Department Care Team (Late st Contact Info) Description 06/05/2024 8:00 AM EDT Office Visit Gynecology/Obstetric s Alyce Weiss [address] [place] [address] Rachel Shafer CRNP [address] [place] [address] Multigravida of advanced maternal age in third [...] multigravida 35+ 12/2023 Overview: Age 43YO at [facility] Considering cffDNA - determining insurance coverage. Declined [...] is considering cffDNA screening. Advised to notify [facility] if she desires cffDNA testing to be [...] mRNA, LNP-s, No Pre serve, 2-Dose Series ([email or web address]) 03/04/2021,02/11/2021 Seasonal Influenza, PF, 6 M & [...] money to get more. Never true 11/27/2023 [place] Depression Scale Answer Date Recorded [place] Depression Scale Total 5 12/16/2023 The thought [...] NST at 37w. IOL scheduled for 07/02. Cash Register Balancer Documentation Provider requested snowmaker. Name of snowmaker: MATILDA Rivas documented in this encounter Nursing Notes * Nhi Mcbride RN - 06/05/2024 8:02 AM EDT Patient here for RAY 36w0d GBS Would like cervical check today + FM Denies bleeding/fluid leaking documented in this encounter Plan of Treatment Upcoming Encounters Date Type Department Care Team (Late st Contact Info) Description 06/06/2024 8:40 AM EDT Office Visit Family Practice [facility] [address] [place] [address] Miladis Germain MD [address] [place] [address] 06/19/2024 11:15 AM EDT Office Visit Gynecology/Obstetrics [facility] [address] [place] [address] Mayuri Dove CRNP [address] [place] [address] Abhishek Non Stress Tests [facility] [address] [place] [address] 06/26/2024 11:15 AM EDT Office Visit Gynecology/Obstetrics [facility] [address] [place] [address] Mayuri Dove CRNP [address] [place] [address] Abhishek Non Stress Tests [facility] [address] [place] [address] Pending Results Name Type Priority Associated Diagnoses [...] diseases documented in this encounter Care Teams Filler Blender Relationship Specialty Start Date End Date Miladis Germain MD [address] [place] [place] [address] PCP - General Internal Medicine 03/25/22 documented as of this encounter
--- OUTSIDE RECORDS SUMMARY | 2024-06-19 05:32 | External Medical Summary | Summary of Care ---
Author Name Unknown Organization [facility] Address [address] [facility] [place] [address] Phone [phone] Care Team Providers Care Baker Pie Name Role Phone Miladis Germain MD Primary Care Provider Encounter Details Date Type Department Care Team (Late st Contact Info) Description 04/12/2024 Telephone Gynecology/Obstetrics [facility] [address] [place] [address] Lanette Vitale PA-C [address] [place] [address] Allergies Active Allergy Reactions Criticality Noted Date Comments Cat Dander 12/21/2023 Dog Dander 12/21/2023 Horse-Derived Products 12/21/2023 documented as of this encounter (statuses as of 04/13/2024) Medications Medication Sig Dispensed Refills Start Date End Date Status diphenhydrAMINE HCl 25 MG Oral Capsule Take 1 Capsule by mouth every 6 hours as needed for Itching. Active 28-0.8 MG Oral Tablet Take by mouth. Active Breast PumpIndications:Breast feeding status of mother Use as directed. 1 Each 04/12/2024 Active documented as of this encounter (statuses as of 04/13/2024) Active Problems Problem Noted Date Diagnosed Date Low-lying placenta 02/10/2024 Last Assessment & Plan: The significance of a low-lying placenta was discussed, including that it is a fairly common finding before 20 weeks, and that rarely it can persist until time of delivery and be associated with significant hemorrhage which may require delivery. She denies any bleeding. We will reevaluate later in . With placenta > 1 cm from the os in the third trimester, no contraindication to trial of labor, however, if it is located 1-2 cm from the cervix increased intrapartum bleeding may be observed. As required by [place] Act 112, the Patient Test Result Information Act, I have discussed with the patient the significant findings from the diagnostic imaging service performed today. They have expressed their understanding and signed the acknowledgement form. Family history of cardiac disorder 12/21/2023 Overview: [...] as of this encounter (statuses as of 04/13/2024) Immunizations Name Administration Dates Next Due COVID-19 mRNA, LNP-s, No Pre serve, 2-Dose Series (GO-SIM) 03/04/2021,02/11/2021 Seasonal Influenza, PF, 6 M & [...] money to get more. Never true 11/27/2023 [place] Depression Scale Answer Date Recorded [place] Depression Scale Total 5 12/16/2023 The thought of harming myself has occurred to me . Never 12/16/2023 Estimated Date of Delivery Comme nts Yes [...] encounter Miscellaneous Notes * Telephone Encounter - Katie Ruiz RN - 04/13/2024 11:54 AM EDT Pt called back. Pt again asked to do this tomorrow. I advised it can not be done on the weekend. She will plan to do this when she is back from vacation. Appt made. * Telephone Encounter - Sheri Caceres LPN - 04/13/2024 9:04 AM EDT Patient notified. She states she has a tight schedule so not sure when she will be able to do the glucose testing. Please call patient to set up 3 hour glucose test. She was requesting Tuesday and I told her they do not do it on Saturdays. * Telephone Encounter - Katie Ruiz RN - 04/13/2024 8:55 AM EDT left message for patient to call office * Telephone Encounter - Lanette Vitale PA-C - 04/13/2024 8:32 AM EDT Please also make aware on return call that she was slightly anemic by labs. Hemoglobin 11.8. Would recommend she continue with iron in it and try to increase iron in the diet such as throughgreen leafy vegetables, red meat and iron fortified cereals. * Telephone Encounter - Sheri Caceres LPN - 04/12/2024 12:39 PM EDT left message for patient to call office * Telephone Encounter - Lanette Vitale PA-C - 04/12/2024 11:44 AM EDT She unfortunately did not pass her 1 hour gtt, needs 3 hour gtt to ensure not GDM. Please let her know and given instructions, will need to fast ahead of this testing. documented in this encounter Plan of Treatment Upcoming Encounters Date Type Department Care Team (Late st Contact Info) Description 04/23/2024 7:10 AM EDT [facility] [address] [place], [place] [address] [facility] [address] [place] [address] 04/23/2024 7:45 AM EDT Office Visit Gynecology/Obstetrics Alyce Weiss [address] [place], [place] [address] Lanette Vitale PA-C [address] [place] [address] 05/03/2024 9:30 AM EDT Imaging Maternal Medicine Imaging, Rosario Vallejo[address] [place], [place] [phone] 05/03/2024 9:30 AM EDT Office Visit Piano Builder Obstetrics Maternal Medicine, Rosario [address] [place], [place] [address] Mariama Sarkar, DO [address] [place] [address] 05/08/2024 8:00 AM EDT Office Visit Gynecology/Obstetrics Alyce Weiss [address] [place], [place] [address] Rachel Shafer CRNP [address] [place] [address] 05/29/2024 8:00 AM EDT Office Visit Gynecology/Obstetrics Alyce Patel[address] [place], [place] [address] Rachel Shafer CRNP [address] [place] [address] 05/31/2024 8:45 AM EDT Imaging Maternal Medicine Imaging, Rosario Pat[place] [place] [phone] 06/05/2024 8:00 AM EDT Office Visit Gynecology/Obstetrics [facility] [address] [place] [address] Rachel Shafer CRNP [address] [place] [address] 06/06/2024 8:40 AM EDT Office Visit Family Practice [facility] [address] [place] [address] Miladis Germain MD [address] [place] [address] 06/12/2024 8:00 AM EDT Office Visit Gynecology/Obstetrics [facility] [address] [place] [address] Rachel Shafer CRNP [address] [place] [address] 06/19/2024 8:00 AM EDT Office Visit Gynecology/Obstetrics [facility] [address] [place] [address] Rachel Shafer CRNP [address] [place] [address] 06/26/2024 8:30 AM EDT Office Visit Gynecology/Obstetrics [facility] [address] [place] [address] Mayuri Dove CRNP [address] [place] [address] Scheduled Orders Name Type Priority Associated Diagnoses Orde r Schedule GESTATIONAL GLUCOSE TOLERANCE, 3 HOUR Lab Routine Abnormal glucose tolerance in mother complicating Expected: 04/12/2024, Expires: 04/12/2025 Health Maintenance Due Date Last Done Comments [...] as of this encounter Visit Diagnoses Diagnosis Abnormal glucose tolerance in mother complicating - Primary Abnormal maternal glucose tolerance, complicating , childbirth, or the puerperium, unspecified as to episode of care documented in this encounter Care Teams Baker Pie Relationship Specialty Start Date End Date Miladis Germain MD [address] [place] [address] [place] [address] PCP - General Internal Medicine 03/25/22 documented as of this encounter
--- OUTSIDE RECORDS SUMMARY | 2024-06-19 05:32 | External Medical Summary | Summary of Care ---
Author Name Unknown Organization [facility] Address [address] [place] [address] Phone [phone] Care Team Providers Care Director Stars Name Role Phone Miladis Germain MD Primary Care Provider Reason for Visit * Reason Comments Outpatient Testing Encounter Details Date Type Department Care Team (Late st Contact Info) Description 04/18/2024 7:40 AM EDT Laboratory Laboratory, [facility] [address] [place] [address] [facility] [address] [place] [address] Abnormal glucose tolerance in mother complicating Allergies Active Allergy Reactions Criticality Noted Date Comments Cat Dander 12/21/2023 Dog Dander 12/21/2023 Horse-Derived Products 12/21/2023 documented as of this encounter (statuses as of 04/18/2024) Medications Medication Sig Dispensed Refills Start Date End Date Status diphenhydrAMINE HCl 25 MG Oral Capsule Take 1 Capsule by mouth every 6 hours as needed for Itching. Active 28-0.8 MG Oral Tablet Take by mouth. Active Breast PumpIndications:Breast feeding status of mother Use as directed. 1 Each 04/12/2024 Active documented as of this encounter (statuses as of 04/18/2024) Active Problems Problem Noted Date Diagnosed Date [...] is considering cffDNA screening. Advised to notify [facility] if she desires cffDNA testing to be [...] as of this encounter (statuses as of 04/18/2024) Immunizations Name Administration Dates Next Due COVID-19 mRNA, LNP-s, No Pre serve, 2-Dose Series (BrightWhistle) 03/04/2021,02/11/2021 Seasonal Influenza, PF, 6 M & [...] money to get more. Never true 11/27/2023 [place] Depression Scale Answer Date Recorded [place] Depression Scale Total 5 12/16/2023 The thought [...] Team (Late st Contact Info) Description 04/23/2024 7:45 AM EDT Office Visit Gynecology/Obstetrics Alyce Weiss [address] [place] [address] Lanette Vitale PA-C [address] [place] [address] 05/03/2024 9:30 AM EDT Imaging Maternal Medicine Imaging, Rosario Weiss [address] [place] [phone] 05/03/2024 9:30 AM EDT Office Visit Biometrics Experimentalist Obstetrics Maternal Medicine, Rosario Weiss [address] [place] [address] Mariama Sarkar, DO [address] [place] [address] 05/08/2024 8:00 AM EDT Office Visit Gynecology/Obstetrics Alyce Weiss [address] [place] [address] Rachel Shafer CRNP [address] [place] [address] 05/29/2024 8:00 AM EDT Office Visit Gynecology/Obstetrics Alyce V[facility] [address] [place] [address] Rachel Shafer CRNP [address] [place] [address] 05/31/2024 8:45 AM EDT Imaging Maternal Medicine Imaging, Rosario Weiss [address] [place] [address] 06/05/2024 8:00 AM EDT Office Visit Gynecology/Obstetrics Alyce Weiss [address] [place] [address] Rachel Shafer CRNP [address] [place] [address] 06/06/2024 8:40 AM EDT [facility] [address] [place] [address] Miladis Germain MD [address] [place] [address] 06/12/2024 8:00 AM EDT Office [facility] [address] [place], [place] [address] Rachel Shafer CRNP [address] [place] [address] 06/19/2024 8:00 AM EDT Office Visit Gynecology/Obstetrics [facility] [address] [place], [place] [address] Rachel Shafer CRNP [address] [place], [place] [address] 06/26/2024 8:30 AM EDT Office [facility] [address] [place] [address] Mayuri Dove CRNP [address] [place] [address] Pending Results Name Type Priority Associated Diagnoses Date /Time GESTATIONAL GLUCOSE TOLERANCE, 3 HOUR Lab Routine Abnormal glucose tolerance in mother complicating 04/18/2024 7:43 AM EDT 100-G GESTATIONAL GLUCOSE, 3 HOUR Lab Routine Abnormal glucose tolerance in mother complicating 04/18/2024 10:45 AM EDT Health Maintenance Due Date Last Done Comments [...] Not on filedocumented as of this encounter Procedures Procedure Name Priority Date/Time Associated Diagnosis Comments 100-G GESTATIONAL GLUCOSE, 2 HOUR Routine 04/18/2024 9:45 AM EDT Abnormal glucose tolerance in mother complicating 100-G GESTATIONAL GLUCOSE, 1 HOUR Routine 04/18/2024 8:43 AM EDT Abnormal glucose tolerance in mother complicating 100-G GESTATIONAL GLUCOSE, FASTING Routine 04/18/2024 7:43 AM EDT Abnormal glucose tolerance in mother complicating documented in this encounter Results * 100-G GESTATIONAL GLUCOSE, 2 HOUR (04/18/2024 9:45 AM EDT) 100-g Gestational Glucose, 2 Hour 130 70 - 154 mg/dL 04/18/2024 10:59 AM EDT LABORATORY [place] 57-10 Blood Venous blood specimen / Unknown Venipuncture / Unknown 04/18/2024 9:45 AM EDT 04/18/2024 9:45 AM EDT Lanette Vitale PA-C LAB BLOOD ORDERABLES LABORATORY [place] [address] [place] [address] [place] [address] * 100-G GESTATIONAL GLUCOSE, 1 HOUR (04/18/2024 8:43 AM EDT) 100-g Gestational Glucose, 1 Hour 161 70 - 179 mg/dL 04/18/2024 10:03 AM EDT LABORATORY [place] 57-10 Blood Venous blood specimen / Unknown Venipuncture / Unknown 04/18/2024 8:43 AM EDT 04/18/2024 8:43 AM EDT Lanette Vitale PA-C LAB BLOOD ORDERABLES Performing Organization Address City/[facility]/ZIP Co de Phone Number LABORATORY [place] [phone] [place] [phone] * 100-G GESTATIONAL GLUCOSE, FASTING (04/18/2024 7:43 AM EDT) 100-g Gestational Glucose, Fasting 92 70 - 94 mg/dL 04/18/2024 9:38 AM EDT LABORATORY [place] 57-10 Blood Venous blood specimen / Unknown Venipuncture / Unknown 04/18/2024 7:43 AM EDT 04/18/2024 7:43 AM EDT Narrative LABORATORY [place] 57-10 - 04/18/2024 9:38 AM EDT Based on ACOG guideline, gestational diabetes mellitus is diagnosed when any of the following is met: Fasting is greater than or equal to 95 mg/dL 1 hour is greater than or equal to 180 mg/dL 2 hour is greater than or equal to 155 mg/dL 3 hour is greater than or equal to 140 mg/dL Lanette Vitale PA-C LAB BLOOD ORDERABLES Performing Organization Address City/[facility]/ZIP Co de Phone Number LABORATORY [place] [phone] [place] [phone] documented in this encounter Visit Diagnoses Diagnosis Abnormal glucose tolerance in mother complicating Abnormal maternal glucose tolerance, complicating , childbirth, or the puerperium, unspecified as to episode of care documented in this encounter Care Teams Director Stars Relationship Specialty Start Date End Date Miladis Germain MD [address] [place] [address] PCP - General Internal Medicine 03/25/22 documented as of this encounter
--- OUTSIDE RECORDS SUMMARY | 2024-06-19 05:32 | External Medical Summary | Summary of Care ---
Author Name Unknown Organization [facility] Address [address] [facility] [place] [address] Phone [phone] Care Team Providers Care Tallow Refiner Name Role Phone Miladis Germain MD Primary Care Provider Reason for Visit * Reason Comments Return Visit Encounter Details Date Type Department Care Team (Late st Contact Info) Description 04/23/2024 7:45 AM EDT Office Visit Gynecology/Obstetric s Alyce Weiss [address] [place] [address] Lanette Vitale PA-C [address] [place] [address] Multigravida of advanced maternal age in third trimester*; History of precipitous delivery; Obesity in , antepartum; Family history of cardiac disorder; Low-lying placenta Allergies Active Allergy Reactions Criticality Noted Date Comments Cat Dander 12/21/2023 Dog Dander 12/21/2023 Horse-Derived Products 12/21/2023 documented as of this encounter (statuses as of 04/23/2024) Medications Medication Sig Dispensed Refills Start Date End Date Status diphenhydrAMINE HCl 25 MG Oral Capsule Take 1 Capsule by mouth every 6 hours as needed for Itching. Active 28-0.8 MG Oral Tablet Take by mouth. Active Breast PumpIndications:Breast feeding status of mother Use as directed. 1 Each 04/12/2024 Active documented as of this encounter (statuses as of 04/23/2024) Active Problems Problem Noted Date Diagnosed Date [...] surgery but has ongoing follow-up for same. MF recommending echo Last Assessment & Plan: echo [...] as of this encounter (statuses as of 04/23/2024) Immunizations Name Administration Dates Next Due COVID-19 mRNA, LNP-s, No Pre serve, 2-Dose Series (Pfizer) 03/04/2021,02/11/2021 Seasonal Influenza, PF, 6 M & [...] money to get more. Never true 11/27/2023 [place] Depression Scale Answer Date Recorded [place] Depression Scale Total 5 12/16/2023 The thought [...] Sign Reading Time Taken Comments Blood Pressure 100/68 04/23/2024 7:40 AM EDT Pulse - - Temperature - - Respiratory Rate - - Oxygen Saturation - - Inhaled Oxygen Concentration - - Weight 109.3 kg (241 lb) 04/23/2024 7:40 AM EDT Height 162.6 cm (5' 4") 04/23/2024 7:40 AM EDT Body Mass Index 41.37 04/23/2024 7:40 AM EDT documented in this encounter Progress Notes * Lanette Vitale PA-C - 04/23/2024 7:54 AM EDT 29w6d Failed 1 hour gtt, passed 3 hour gtt -- asking about GDM given this. Explained does 3 hour gtt makes diagnosis and that she does not have it based on normal testing. Low lying placenta -- following with MFM. Denies LOF, VB, contractions. Baby is active. RTC in 2 weeks Lanette Vitale PA-C documented in this encounter Nursing Notes * Ada Ratliff LPN - 04/23/2024 7:44 AM EDT 29w3d documented in this encounter Plan of Treatment Upcoming Encounters Date Type Department Care Team (Late st Contact Info) Description 05/03/2024 9:30 AM EDT Imaging Maternal Medicine Imaging, Rosario [place]el[place]ail [place] [phone] 05/03/2024 9:30 AM EDT Office Visit Stabilizing Machine Operator Obstetrics Maternal Medicine, [facility] [place] [address] Mariama Sarkar, DO [address] [place] [address] 05/08/2024 8:00 AM EDT Office Visit Gynecology/Obstetrics Alyce Weiss [address] [place] [address] Rachel Shafer CRNP [address] [place] [address] 05/29/2024 8:00 AM EDT Office Visit Gynecology/Obstetrics Alyce [facility] [address] [place] [address] Rachel Shafer CRNP [address] [place] [address] 05/31/2024 8:45 AM EDT Imaging Maternal Medicine Imaging, Rosario Velezs [address] [place] [address] 06/05/2024 8:00 AM EDT Office Visit Gynecology/Obstetrics Alyce [facility] [address] [place] [address] Rachel Shafer CRNP [address] [place] [address] 06/06/2024 8:40 AM EDT Office Visit Family Practice [facility] [address] [place] [address] Miladis Germain MD [address] [place] [address] 06/12/2024 8:00 AM EDT Office Visit Gynecology/Obstetrics Alyce Velezs [address] [place] [address] Rachel Shafer CRNP [address] [place] [address] 06/19/2024 8:00 AM EDT Office Visit Gynecology/Obstetrics Alyce [facility] [address] [place] [address] Rachel Shafer CRNP [address] [place] [address] 06/26/2024 8:30 AM EDT Office Visit Gynecology/Obstetrics Alyce [facility] [address] [place] [address] Mayuri Dove CRNP [address] [place] [address] Health Maintenance Due Date Last Done Comments Pneumococcal Vaccine: Pediatrics (0 to 5 Years) and At-Risk Patients (6 to 64 Years) (1 of 2 - PCV) 1988 Depression Screening 1994 Hepatitis B (1 of 3 - 19+ 3-dose series) 2001 Diabetes Screening 10/21/2018 10/21/2015 Lipid Panel 10/21/2020 10/21/2015 Mammogram 2022 COVID-19 Vaccine ( - season) 2023 03/04/2021, 02/11/2021 Influenza Vaccine [...] care documented in this encounter Care Teams Tallow Refiner Relationship Specialty Start Date End Date Miladis Germain MD [address] [place] [address] PCP - General Internal Medicine 03/25/22 documented as of this encounter
--- OUTSIDE RECORDS SUMMARY | 2024-06-19 05:32 | External Medical Summary | Summary of Care ---
Author Name Unknown Organization [facility] Address [address] [place] [address] Phone [phone] Care Team Providers Care Policy Checker Name Role Phone Miladis Germain MD Primary Care Provider Encounter Details Date Type Department Care Team (Late st Contact Info) Description 04/12/2024 10:15 AM EDT Office Visit Personal Property Appraiser Obstetrics Maternal Medicine, [address] [address] Mariama Sarkar, DO [address] [place], [place] [id number] Obesity in , antepartum*; Multigravida of advanced maternal age in third trimester; Low-lying placenta; Ultrasound for screening for growth restriction; 28 weeks gestation of Allergies Active Allergy Reactions Criticality Noted Date Comments Cat Dander 12/21/2023 Dog Dander 12/21/2023 Horse-Derived Products 12/21/2023 documented as of this encounter (statuses as of 04/12/2024) Medications Medication Sig Dispensed Refills Start Date End Date Status diphenhydrAMINE HCl 25 MG Oral Capsule Take 1 Capsule by mouth every 6 hours as needed for Itching. Active 28-0.8 MG Oral Tablet Take by mouth. Active Breast PumpIndications:Breast feeding status of mother Use as directed. 1 Each 04/12/2024 Active documented as of this encounter (statuses as of 04/12/2024) Active Problems Problem Noted Date Diagnosed Date [...] as of this encounter (statuses as of 04/12/2024) Immunizations Name Administration Dates Next Due COVID-19 [...] money to get more. Never true 11/27/2023 [place] Depression Scale Answer Date Recorded [place] Depression Scale Total 5 12/16/2023 The thought [...] of this encounter Progress Notes * Mariama Sarkar, - 04/12/2024 10:53 AM EDT Yoselin presented today at 28w2d for an ultrasound for the following indications: Obesity in , antepartum Multigravida of advanced maternal age in third trimester Low-lying placenta Ultrasound for screening for growth restriction 28 weeks gestation of Ultrasound summary: Patient presented at 28w 2d for growth assessment. Normal growth with EFW 1228 g at 43%ile. Normal ABIMAEL at 20.5 cm. Transverse presentation. Placenta remains low lying today. I reviewed the ultrasound images. Yoselin was [...] call with any questions. Mariama Sarkar DO 04/12/2024 10:53 AM documented in this encounter Plan of Treatment Upcoming Encounters Date Type Department Care Team (Late st Contact Info) Description 04/23/2024 7:45 AM EDT Office Visit Gynecology/Obstetrics Alyce Weiss [address] [place] [address] Lanette Vitale PA-C [address] [place] [address] 05/03/2024 9:30 AM EDT Imaging Maternal Medicine Imaging, Rosario Weiss [address] [place] [phone] 05/03/2024 9:30 AM EDT Office Visit Personal Property Appraiser Obstetrics Maternal Medicine, Rosario Weiss [address] [place] [address] [facility]ar DO [address] [facility] [address] 05/08/2024 8:00 AM EDT Office Visit Gynecology/Obstetrics Alyce Weiss [address] [place] [address] Rachel Shafer CRNP [address] [place] [address] 05/29/2024 8:00 AM EDT Office Visit Gynecology/Obstetrics [facility] [address] [place] [address] Rachel Shafer CRNP [address] [place] [address] 05/31/2024 8:45 AM EDT Imaging Maternal Medicine Imaging, Rosario [facility] [address] [place] [address] 06/05/2024 8:00 AM EDT Office Visit [facility] [address] [place] [address] Rachel Shafer CRNP [address] [place] [address] 06/06/2024 8:40 AM EDT Office Visit Family Practice [facility] [address] [place] [address] Miladis Germain MD [address] [place] [address] 06/12/2024 8:00 AM EDT Office Visit [facility] [address] [place] [address] Rachel Shafer CRNP [address] [place] [address] 06/19/2024 8:00 AM EDT Office Visit [facility] [address] [place] [address] Rachel Shafer CRNP [address] [place] [address] 06/26/2024 8:30 AM EDT Office Visit Gynecology/Obstetrics [facility] [address] [place] [address] Mayuri Dove CRNP [address] [place] [address] Health Maintenance Due Date Last Done Comments [...] of advanced maternal age in third trimester Low-lying placenta Hemorrhage from placenta previa, unspecified as to episode of care Ultrasound for screening for growth restriction screening for growth retardation using ultrasonics 28 weeks gestation of state, incidental documented in this encounter Care Teams Policy Checker Relationship Specialty Start Date End Date Miladis Germain MD [address] [place] [address] PCP - General Internal Medicine 03/25/22 documented as of this encounter
--- OUTSIDE RECORDS SUMMARY | 2024-06-19 05:32 | External Medical Summary | Summary of Care ---
Author Name Unknown Organization [facility] Address [address] [place] [address] Phone [phone] Care Team Providers Care Manager Alliance Name Role Phone Miladis Germain MD Primary Care Provider Reason for Visit * Reason Comments Return Visit Encounter Details Date Type Department Care Team (Late st Contact Info) Description 04/12/2024 9:45 AM EDT Office Visit Gynecology/Obstetric [facility] [address] [facility] [place] [address] Macie Roman PA-C [address] [facility] [place] [address] Multigravida of advanced maternal age in third trimester*; Obesity in , antepartum; History of precipitous delivery; Need for scqlmsmdun-qdrthsy-vf rtussis (Tdap) vaccine; Breast feeding status of mother Allergies Active Allergy Reactions Criticality Noted Date [...] money to get more. Never true 11/27/2023 [place] Depression Scale Answer Date Recorded [place] Depression Scale Total 5 12/16/2023 The thought [...] Reading Time Taken Comments Blood Pressure 114/76 04/12/2024 9:33 AM EDT Pulse - - Temperature - - Respiratory Rate - - Oxygen Saturation - - Inhaled Oxygen Concentration - - Weight 108.9 kg (240 lb) 04/12/2024 9:33 AM EDT Height 162.6 cm (5' 4") 04/12/2024 9:33 AM EDT Body Mass Index 41.2 04/12/2024 9:33 AM EDT documented in this encounter Progress Notes * Macie Roman PA-C - 04/12/2024 9:50 AM EDT Yoselin Ng is a 43 year old female here for her routine OB appointment at 28w2d Her Estimated Date of Delivery: 07/03/24 Reporting intermittent LE swelling. Reports this is worse after she hikes, and improves with rest and elevation. She does not wear compression stockings. REVIEW OF SYSTEMS She affirms movement. Denies vaginal bleeding, LOF, contractions, N/V, headaches, vision changes, chest pain, deep calf pain. PHYSICAL EXAM: Filed Vitals: 04/12/24 0933 BP: 114/76 Weight: 108.9 kg (240 lb) Height: 1.626 m (5' 4") +FHT 140s Fundal height 29 cm ASSESSMENT/PLAN Multigravida of advanced maternal age in third trimester (Primary) - Weekly NSTs 37w - Delivery by 40w Obesity in , antepartum - Class 2 History of precipitous delivery Need for aolfjkgtac-uyvmreo-uwniunced (Tdap) vaccine - TDAP (AGE 10 AND OLDER)(BOOSTRIX) Breast feeding status of mother - Breast Pump; Use as directed. Supervision of - recommended tdap vaccine - patient received today - she completed CBC, GTT, RPR this morning. - she desires a prescription for a breast pump - she is unsure what she wants for contraception , but had an IUD prior and liked it. - rhogam not needed d/t A+ blood type - labor precautions and kick counts reviewed - encouraged compression stockings for intermittent LE swelling RTO in 2 weeks Macie Roman PA-C 04/12/2024 documented in this encounter Nursing Notes * Ada Ratliff LPN - 04/12/2024 9:44 AM EDT 28w2d BL LE swelling, better with elevation. documented in this encounter Plan of Treatment Upcoming Encounters Date Type Department Care Team (Late st Contact Info) Description 04/23/2024 7:45 AM EDT Office Visit Gynecology/Obstetrics Alyce Weiss [address] [place] [address] Lanette Vitale PA-C [address] [place] [address] 05/03/2024 9:30 AM EDT Imaging Maternal Medicine Imaging, Rosario Weiss [address] [place] [phone] 05/03/2024 9:30 AM EDT Office Visit Chief Client Officer Obstetrics Maternal Medicine, Rosario Weiss [address] [place] [address] Mariama Sarkar, DO [address] [place] [address] 05/08/2024 8:00 AM EDT Office Visit Gynecology/Obstetrics Alyce Weiss [address] [place] [address] Rachel Shafer CRNP [address] [place] [address] 05/29/2024 8:00 AM EDT Office Visit Gynecology/Obstetrics Alyce Weiss [address] [place] [address] Rachel Shafer CRNP [address] [place] [address] 05/31/2024 8:45 AM EDT Imaging Maternal Medicine Imaging, Rosario Weiss [address] [place] [phone] 06/05/2024 8:00 AM EDT Office Visit Gynecology/Obstetrics [facility] [address] [place] [address] Rachel Shafer CRNP [address] [place] [address] 06/06/2024 8:40 AM EDT Office Visit Family Practice [facility] [address] [place] [address] Miladis Germain MD [address] [place] [address] 06/12/2024 8:00 AM EDT Office Visit Gynecology/Obstetrics [facility] [address] [place] [address] Rachel Shafer CRNP [address] [place] [address] 06/19/2024 8:00 AM EDT Office Visit Gynecology/Obstetrics [facility] [address] [place] [address] Rachel Shafre CRNP [address] [place] [address] 06/26/2024 8:30 AM EDT Office Visit Gynecology/Obstetrics [facility] [address] [place] [address] Mayuri Dove CRNP [address] [place] [address] Health Maintenance Due Date Last Done Comments [...] advanced maternal age in third trimester- Primary Obesity in , antepartum Obesity complicating , childbirth, or the puerperium, antepartum condition or complication History of precipitous delivery Need for wpjjnlgobq-fbyxbed-zfkrmpchw (Tdap) vaccine Need for prophylactic vaccination with combined yigudvzoqh-pfgppdc-qxcdjcjys (DTP) vaccine Breast feeding status of mother care and examination of lactating mother documented in this encounter Care Teams Manager Alliance Relationship Specialty Start Date End Date Miladis Germain MD [address] [facility] [place] [address] PCP - General Internal Medicine 03/25/22 documented as of this encounter
--- OUTSIDE RECORDS SUMMARY | 2024-06-19 05:32 | External Medical Summary ---
Author Name Unknown Address Unknown Organization [id number]:[facility] 57-[address] - [address] [place] [id number] Laboratory Report Ordering Provider Test Date Status SAROJ BROWN 04/18/2024 10:45:55 Final Observation Date Value Abnormality Reference (Units ) Status Glucose [Mass/volume] in Serum or Plasma --3 hours post dose glucose 04/18/2024 10:45:55 102 70-139 (mg/dL) Final Performing Location [facility] 57-1 0 - [address] [place] [address]
--- OUTSIDE RECORDS SUMMARY | 2024-06-19 05:32 | External Medical Summary ---
Author Name Unknown Address Unknown Organization [id number]:[facility] 57-10 - [address] [place] [address] Laboratory Report Ordering Provider Test Date Status SAROJ BROWN 04/18/2024 09:45:07 Final Observation Date Value Abnormality Reference (Units ) Status Glucose, 2-hr post glucose challenge 04/18/2024 09:45:07 130 70-154 (mg/dL) Final Performing Location LAB[facility]ATORY [facility] 57-[address] 0 - [address] [place] [id number]
--- OUTSIDE RECORDS SUMMARY | 2024-06-19 05:32 | External Medical Summary | Summary of Care ---
Author Name Unknown Organization [facility] Address [address] [place] [address] Phone [phone] Care Team Providers Care Halver Machine Operator Name Role Phone Miladis Germain MD Primary Care Provider Encounter Details Date Type Department Care Team (Late st Contact Info) Description 04/12/2024 10:15 AM EDT Office Visit Automotive Service Writer Obstetrics Maternal Medicine, [address] [address] Mariama Sarkar, DO [address] [place], [place] [phone] Obesity in , antepartum*; Multigravida of advanced [...] money to get more. Never true 11/27/2023 [place] Depression Scale Answer Date Recorded [place] Depression Scale Total 5 12/16/2023 The thought [...] Alyce Weiss [address] [place] [address] Lanette Vitale PA-C [address] [place] [address] 05/03/2024 9:30 AM EDT Imaging Maternal Medicine Imaging, Rosario Weiss [address] [place] [phone] 05/03/2024 9:30 AM EDT Office Visit Automotive Service Writer Obstetrics Maternal Medicine, Rosario Weiss [address] [place] [address] Mariama Sarkar DO [address] [facility] [address] 05/08/2024 8:00 AM EDT Office Visit Gynecology/Obstetrics Alyce Weiss [address] [place] [address] Rachel Shafer CRNP [address] [place] [address] 05/29/2024 8:00 AM EDT Office Visit Gynecology/Obstetrics [facility] [address] [place] [address] Rachel Shafer CRNP [address] [place] [address] 05/31/2024 8:45 AM EDT Imaging Maternal Medicine Imaging, [facility] [address] [place] [phone] 06/05/2024 8:00 AM EDT Office Visit Gynecology/Obstetrics [facility] [address] [place] [address] Rachel Shafer CRNP [address] [place] [address] 06/06/2024 8:40 AM EDT Office Visit Family Practice [facility] [address] [place] [address] Miladis Germain MD [address] [place] [address] 06/12/2024 8:00 AM EDT Office Visit Gynecology/Obstetrics [facility] [address] [place] [address] Rachel Shafer CRNP [address] [place] [address] 06/19/2024 8:00 AM EDT Office Visit Gynecology/Obstetrics [facility] [address] [place] [address] Rachel Shafer CRNP [address] [place] [address] 06/26/2024 8:30 AM EDT Office Visit Gynecology/Obstetrics [facility] [address] [place] [address] Mayuri Dove CRNP [address] [place] [address] Health Maintenance Due Date Last Done Comments [...] incidental documented in this encounter Care Teams Halver Machine Operator Relationship Specialty Start Date End Date Miladis Germain MD [address] [place] [address] PCP - General Internal Medicine 03/25/22 documented as of this encounter
--- OUTSIDE RECORDS SUMMARY | 2024-06-19 05:32 | External Medical Summary ---
Author Name Unknown Address Unknown Organization K0G:[facility] [place] [address] - [address] [place] [id number] Laboratory Report Ordering Provider Test Date Status SAROJ BROWN 04/18/2024 07:43:46 Final Based on ACOG guideline, ges tational diabetes mellitus is diagnosed when any of the following is met:
Fasting is greater than or equal to 95 mg/dL
1 hour is greater than or equal to 180 mg/dL
2 hour is greater than or equal to 155 mg/dL
3 hour is greater than or equal to 140 mg/dL Observation Date Value Abnormality Reference (Units ) Status Glucose, fasting 04/18/2024 07:43:46 92 70- 94 (mg/dL) Final Performing Location LABORATORY [facility] 57-[address] 0 - [address] [place] [address]
--- OUTSIDE RECORDS SUMMARY | 2024-06-19 05:32 | External Medical Summary ---
Author Name Unknown Address Unknown Organization K0G:LABORATORY [facility] 57-[address] - [address] [place] [address] Laboratory Report Ordering Provider Test Date Status SAROJ BROWN 04/18/2024 08:43:16 Final Observation Date Value Abnormality Reference (Units ) Status Glucose [Mass/volume] in Serum or Plasma --1 hour post dose glucose 04/18/2024 08:43:16 161 70-179 (mg/dL) Final Performing Location LABORATORY [facility] 57-[address] 0 - [address] [place] [id number]
--- OUTSIDE RECORDS SUMMARY | 2024-06-19 05:33 | External Medical Summary | Summary of Care ---
Author Name Unknown Organization [facility] Address [address] [place] [address] Phone [phone] Care Team Providers Care Investment Accountant Name Role Phone Miladis Germain MD Primary Care Provider Encounter Details Date Type Department Care Team (Late st Contact Info) Description 01/30/2024 Orders Only Outcomes Research Department [address] [place] [address] Pratima Fountain [facility] [employer] Other*[id number] Allergies Active Allergy Reactions Criticality Noted Date Comments Cat Dander 12/21/2023 Dog Dander 12/21/2023 Horse-Derived Products 12/21/2023 documented as of this encounter (statuses as of 01/30/2024) Medications Medication Sig Dispensed Refills Start Date End Date Status diphenhydrAMINE HCl 25 MG Oral Capsule Take 1 Capsule by mouth every 6 hours as needed for Itching. 0 Active 28-0.8 MG Oral Tablet Take by mouth. 0 Active documented as of this encounter (statuses as of 01/30/2024) Active Problems Problem Noted Date Diagnosed Date Family history of cardiac disorder 12/21/2023 Overview: FOB born with congenital heart disorder (patent foramen ovale); has never required surgery but has ongoing follow-up for same. MFM recommending echo Last Assessment & Plan: Discussed that family history of congenital cardiac defect in a first degree relative of the fetus (mother of the baby, father of the baby or a sibling of the baby) increases the risk of cardiac defect in this from baseline by at least 1%. In patients with this family history we recommend an anatomy survey with Maternal Medicine at 18-20 weeks gestation and echocardiogram at 22-24 weeks gestation. Obesity in , antepartum 12/20/2023 Overview: The patient's pre-gravid BMI is 36.89. Class 2 Early glucola ordered. Growth q4w NST weekly starting at 37w Last Assessment & Plan: CONSIDERATIONS: Discussed obstetrical risks associated with class II obesity (pre- BMI of 35 to 39.9) Reviewed that the accuracy of ultrasound at diagnosing anomalies is significantly decreased for women with an increased BMI. RECOMMENDATIONS: Recommend restricting weight gain during to 11-20 pounds. Patient should be referred for a nutrition consult. Recommend evaluation for signs and symptoms (snoring, excessive daytime sleepiness witnessed apnea or unexplained hypoxia) of obstructive sleep apnea. If any of these are present, referral to Sleep Medicine specialist for further evaluation should be considered. Recommend performing gestational diabetes mellitus screen now (if not performed at first visit) and repeat again at 26-28 weeks if early screen is normal. Recommend Maternal- Medicine ultrasound for anatomy at 20 weeks and for growth every 4 weeks thereafter. For patients with Class 2 obesity, we recommend weekly surveillance starting at 37 weeks. AMA (advanced maternal age) multigravida 35+ [...] is considering cffDNA screening. Advised to notify [facility] if she desires cffDNA testing to [...] as of this encounter (statuses as of 01/30/2024) Immunizations Name Administration Dates Next Due COVID-19 mRNA, LNP-s, No Pre serve, 2-Dose Series (SocialRadar) 03/04/2021,02/11/2021 Seasonal Influenza, PF, 6 M & above, IM , (FluLaval or Fluzone) 09/25/2020 Seasonal Influenza, Quadrivalent Hd (Fluzone Hd) 08/11/2021 TDAP (age 10 and older)(Boostrix) 05/16/2019 documented as of this encounter Social History [...] money to get more. Never true 11/27/2023 [place] Depression Scale Answer Date Recorded [place] Depression Scale Total 5 12/16/2023 The thought [...] Care Team (Late st Contact Info) Description 02/24/2024 7:30 AM EDT Office Visit Claim Professional OB Maternal Medicine [facility] Wolfgang Childers [address] [place] [address] [address] [place] [address] Mariama Sarkar, DO [address] [facility] [address] 02/24/2024 7:30 AM EDT Imaging Maternal Medicine [facility] Wolfgang Childers [address] [place] [address] [address] [place] [address] 02/28/2024 8:00 AM EDT Office Visit Gynecology/Obstetrics [facility] [address] [place] [address] Rachel Shafer CRNP [address] [place] [address] 06/06/2024 8:40 AM EDT Office Visit Family Practice [facility] [address] [place] [address] Miladis Germain MD [address] [place] [address] Scheduled Orders Name Type Priority Associated Diagnoses Orde r Schedule MYCODE SUBSEQUENT ADULT Lab Routine [employer] Other*[id number] Every 6 Months for 2 Occurrences starting 01/30/2024 until 02/18/2025 Health Maintenance Due Date Last Done Comments [...] 03/04/2021, 02/11/2021 Influenza Vaccine (FLU shot) (#1) 2023 08/11/2021, 08/11/2021, 09/25/2020, Additional history exists Pap Smear 12/16/2026 12/16/2023, 03/25/2022 Cervical Cancer Screening 12/16/2028 HPV/Co-Test 12/16/2028 12/16/2023 DTaP,Tdap,and Td Vaccines (2 - Td or Tdap) 05/16/2029 05/16/2019 GARDASIL-HPV IMMUNIZATION SERIES Aged Out No longer eligible based on patient's age to complete this topic MENINGOCOCCAL (MENACTRA/MENVEO) Aged Out No longer eligible based on patient's age to complete this topic documented as of this encounter Medical Devices Not on filedocumented as of this encounter Visit Diagnoses Diagnosis [employer] Other*[id number] documented in this encounter Care Teams Investment Accountant Relationship Specialty Start Date End Date Miladis Germain MD [address] [place] [address] PCP - General Internal Medicine 03/25/22 documented as of this encounter
--- OUTSIDE RECORDS SUMMARY | 2024-06-19 05:33 | External Medical Summary ---
Author Name Unknown Address Unknown Organization K01:[facility] [place] - [address] [address] Laboratory Report Ordering Provider Test Date Status SAROJ BROWN 04/12/2024 09:40:39 Final Observation Date Value Abnormality Reference (Units ) Status WBC, Total 04/12/2024 09:40:39 8.51 4.00-10.8 0 (K/uL) Final RBC 04/12/2024 09:40:39 4.17 3.85-5.15 (M/uL) Final Hemoglobin 04/12/2024 09:40:39 11.8 Below low normal 12 .0-15.3 (g/dL) Final Anemia reflex testing trigge rs on a HGB < 12.0 for Females and HGB < 13.0 for Males in accordance with the WHO Anemia Guidelines
Anemia reflex testing triggers on a HGB < 12.0 for Females and HGB < 13.0 for Males in accordance with the WHO Anemia Guidelines HCT 04/12/2024 09:40:39 35.6 Below low normal 36. 0-45.2 (%) Final MCV 04/12/2024 09:40:39 85.4 81.5-97.5 (fL) Final MCH 04/12/2024 09:40:39 28.3 27.0-34.0 (pg) Final MCHC 04/12/2024 09:40:39 33.1 32.0-36.0 (g/dL) Final RDW 04/12/2024 09:40:39 13.1 11.5-15.5 (%) Final Platelets 04/12/2024 09:40:39 246 140-400 (K /uL) Final MPV 04/12/2024 09:40:39 10.8 6.6-11.1 ( fL) Final Nucleated erythrocytes/100 leukocytes [Ratio] in Blood by Automated count 04/12/2024 09:40:39 0 <=0 (/100 WBCs) Final Performing Location [facility]ORY [place] - [address] [facility] [address]
--- OUTSIDE RECORDS SUMMARY | 2024-06-19 05:33 | External Medical Summary | Summary of Care ---
Author Name Unknown Organization [facility] Address [address] [facility] [place] [address] Phone [phone] Care Team Providers Care Air Traffic Coordinator Name Role Phone Miladis Germain MD Primary Care Provider Reason for Visit * Reason Comments Return Visit Encounter Details Date Type Department Care Team (Late st Contact Info) Description 03/26/2024 7:45 AM EDT Office Visit Gynecology/Obstetric s [facility] Weiss [address] [place] [address] Lanette Vitale PA-C [address] [place] [address] Multigravida of advanced maternal age in second trimester*; History of precipitous delivery; Obesity in , antepartum; Family history of cardiac disorder Allergies Active Allergy Reactions Criticality Noted Date Comments Cat Dander 12/21/2023 Dog Dander 12/21/2023 Horse-Derived Products 12/21/2023 documented as of this encounter (statuses as of 03/26/2024) Medications Medication Sig Dispensed Refills Start Date End Date Status diphenhydrAMINE HCl 25 MG Oral Capsule Take 1 Capsule by mouth every 6 hours as needed for Itching. 0 Active 28-0.8 MG Oral Tablet Take by mouth. 0 Active documented as of this encounter (statuses as of 03/26/2024) Active Problems Problem Noted Date Diagnosed Date [...] is considering cffDNA screening. Advised to notify [facility] if she desires cffDNA testing to be [...] as of this encounter (statuses as of 03/26/2024) Immunizations Name Administration Dates Next Due COVID-19 mRNA, LNP-s, No Pre serve, 2-Dose Series ([employer]) 03/04/2021,02/11/2021 Seasonal Influenza, PF, 6 M & [...] money to get more. Never true 11/27/2023 Rebecca Depression Scale Answer Date Recorded Rebecca Depression Scale Total 5 12/16/2023 The thought [...] Sign Reading Time Taken Comments Blood Pressure 114/78 03/26/2024 8:10 AM EDT Pulse - - Temperature - - Respiratory Rate - - Oxygen Saturation - - Inhaled Oxygen Concentration - - Weight 108.9 kg (240 lb) 03/26/2024 8:10 AM EDT Height 162.6 cm (5' 4") 03/26/2024 8:10 AM EDT Body Mass Index 41.2 03/26/2024 8:10 AM EDT documented in this encounter Progress Notes * Lanette Vitale PA-C - 03/26/2024 8:20 AM EDT 25w6d First time seeing patient. Following with MFM, anatomy complete with them, pt with low lying placenta. Has growth scheduled 04/12/2024. Denies VB, LOF. Pos fm. Reports R sided pelvic pain when walking for awhile. Relieved with rest. Reviewed comfort measures. Discussed glucola with next visit. RTC in 3 weeks Lanette Vitale PA-C documented in this encounter Nursing Notes * Ada Ratliff LPN - 03/26/2024 8:18 AM EDT 25w6d Cramps on right side when walking, once or twice a week. documented in this encounter Plan of Treatment Upcoming Encounters Date Type Department Care Team (Late st Contact Info) Description 04/12/2024 9:00 AM EDT Laboratory Laboratory, [facility] [address] [place] [phone] [facility] [address] [place] [address] 04/12/2024 9:45 AM EDT Office Visit Gynecology/Obstetrics [facility] [address] [place] [address] Macie Roman PA-C [address] [place] [address] [place] [address] 04/12/2024 10:15 AM EDT Imaging Maternal Medicine Imaging, [facility]ario Weiss [address] [place] [phone] 04/23/2024 7:45 AM EDT Office Visit Gynecology/Obstetrics [facility] [address] [place] [address] Lanette Vitale PA-C [address] [place] [address] 05/03/2024 9:30 AM EDT Imaging Maternal Medicine Imaging, Rosario Weiss [address] [place] [address] 05/08/2024 8:00 AM EDT Office Visit Gynecology/Obstetrics A[facility] [address] [place] [address] Rachel Shafer CRNP [address] [place] [address] 05/29/2024 8:00 AM EDT Office Visit Gynecology/Obstetrics [facility] [address] [place] [address] Rachel Shafer CRNP [address] [place] [address] 05/31/2024 8:45 AM EDT Imaging Maternal Medicine Imaging, Rosario Weiss [address] [place] [address] 06/05/2024 8:00 AM EDT Office Visit Gynecology/Obstetrics [facility] [address] [place] [address] Rachel Shafer CRNP [address] [place] [address] 06/06/2024 8:40 AM EDT [facility] [address] [place] [address] Miladis Germain MD [address] [place] [address] 06/12/2024 8:00 AM EDT Office Visit Gynecology/Obstetrics [facility] [address] [place] [address] Rachel Shafer CRNP [address] [place] [address] 06/19/2024 8:00 AM EDT [facility] [address] [place] [address] Rachel Shafer CRNP [address] [place] [address] 06/26/2024 8:30 AM EDT Office Visit Gynecology/Obstetrics [facility] [address] [place] [address] BackerMayuri CRNP [address] [place] [address] Scheduled Orders Name Type Priority Associated Diagnoses Orde r Schedule 50-G GESTATIONAL GLUCOSE, 1 HOUR Lab Routine Multigravida of advanced maternal age in second trimester Expected: 04/09/2024 (Approximate), Expires: 03/26/2025 CBC WITH WBC DIFFERENTIAL AND ANEMIA REFLEX WORKUP Lab Routine Multigravida of advanced maternal age in second trimester Expected: 04/09/2024 (Approximate), Expires: 03/26/2025 SYPHILIS ANTIBODY SCREEN WITH REFLEX TO RPR Lab Routine Multigravida of advanced maternal age in second trimester Expected: 04/09/2024 (Approximate), Expires: 03/26/2025 Health Maintenance Due Date Last Done Comments [...] Diagnosis Multigravida of advanced maternal age in second trimester- Primary History of precipitous delivery Obesity in , antepartum Obesity complicating , childbirth, or the puerperium, antepartum condition or complication Family history of cardiac disorder Family history of other cardiovascular diseases documented in this encounter Care Teams Air Traffic Coordinator Relationship Specialty Start Date End Date Miladis Germain MD [address] [place] [address] PCP - General Internal Medicine 03/25/22 documented as of this encounter
--- OUTSIDE RECORDS SUMMARY | 2024-06-19 05:33 | External Medical Summary | Summary of Care ---
Author Name Unknown Organization [facility] Address [address] [place] [address] Phone [phone] Care Team Providers Care Hydrogen Plant Operator Name Role Phone Miladis Germain MD Primary Care Provider Encounter Details Date Type Department Care Team (Late st Contact Info) Description 02/10/2024 10:45 AM EDT Office Visit Boiler Tube Blower OB Maternal Medicine [facility] Wolfgang Childers [address] [place] [address] [address] [place], [place] [id number] Mariama Sarkar, DO [address] [place], [place] [id number] Family history of cardiac disorder*; Multigravida of advanced maternal age in second trimester; Obesity in , antepartum; Low-lying placenta; Encounter for anatomic survey; 19 weeks gestation of ; Other specified related conditions, second trimester Allergies Active Allergy Reactions Criticality Noted Date Comments Cat Dander 12/21/2023 Dog Dander 12/21/2023 Horse-Derived Products 12/21/2023 documented as of this encounter (statuses as of 02/10/2024) Medications Medication Sig Dispensed Refills Start Date End Date Status diphenhydrAMINE HCl 25 MG Oral Capsule Take 1 Capsule by mouth every 6 hours as needed for Itching. 0 Active 28-0.8 MG Oral Tablet Take by mouth. 0 Active documented as of this encounter (statuses as of 02/10/2024) Active Problems Problem Noted Date Diagnosed Date [...] is considering cffDNA screening. Advised to notify [facility] if she desires cffDNA testing to [...] as of this encounter (statuses as of 02/10/2024) Immunizations Name Administration Dates Next Due COVID-19 [...] money to get more. Never true 11/27/2023 [place] Depression Scale Answer Date Recorded [place] Depression Scale Total 5 12/16/2023 The thought [...] encounter Progress Notes * Mariama Sarkar, - 02/10/2024 1:52 PM EDT MATERNAL MEDICINE VISIT Yoselin Ng presented today at 19w3d for an ultrasound and follow-up of her high risk . She was seen for the following indications: Problem List Items Addressed This Visit AMA (advanced maternal age) multigravida 35+ Obesity in , antepartum Low risk NIPT appreciated as well as early 1'GTT. Plan of care reviewed; will schedule serial fetalgrowth assessments q4-6 weeks. Family history of cardiac disorder - Primary echo not completed today; will obtain additional missing views at next ultrasound exam. Low-lying placenta The significance of a low-lying placenta was [...] Test Result Information Act, I have discussed withthe patient the significant findings from the diagnostic imaging service performed today. They haveexpressed their understanding and signed the acknowledgement form. Other Visit Diagnoses Encounter for anatomic survey 19 weeks gestation of We reviewed today's ultrasound findings. Normal growth with no evidence of structural abnormalities, however exam suboptimal dueto maternal habitus and position. (For full details, please refer to ultrasound report provided separately). Ms. Ng's questions were answered to her satisfaction. She was advised to contact our office or her OB provider for any additional questions regarding her . RECOMMENDATIONS: Recommend follow up ultrasound with MFM in 4 weeks for growth and to complete anatomy survey with echo secondary to above indications. Thank you for allowing us to participate in the care of this patient. Please call with any questions. Mariama Sarkar DO 02/10/2024 1:52 PM documented in this encounter Miscellaneous Notes * Assessment & Plan Note - Mariama Sarkar DO - 02/10/2024 1:51 PM EDT Associated Problem(s): Low-lying placenta The significance of a low-lying placenta was [...] Test Result Information Act, I have discussed withthe patient the significant findings from the diagnostic imaging service performed today. They haveexpressed their understanding and signed the acknowledgement form. * Assessment & Plan Note - Mariama Sarkar DO - 02/10/2024 1:51 PM EDT Associated Problem(s): Obesity in , antepartum Low risk NIPT appreciated as well as early 1'GTT. Plan of care reviewed; will schedule serial fetalgrowth assessments q4-6 weeks. * Assessment & Plan Note - Mariama Sarkar DO - 02/10/2024 1:50 PM EDT Associated Problem(s): Family history of cardiac disorder echo not completed today; will obtain additional missing views at next ultrasound exam. documented in this encounter Plan of Treatment Upcoming Encounters Date Type Department Care Team (Late st Contact Info) Description 02/28/2024 8:00 AM EDT Office Visit Gynecology/Obstetrics A[facility] Weiss [address] [place] [address] Rachel Shafer CRNP [address] [place] [address] 03/07/2024 8:00 AM EDT Imaging Radiology, [address] [address] 03/29/2024 1:45 PM EDT Imaging Maternal Medicine Imaging, Rosario Weiss [address] [place] [address] 05/02/2024 8:00 AM EDT Imaging Radiology, [place] [address] [place] [address] 06/06/2024 8:40 AM EDT Office Visit Family Practice [facility] [address] [place] [address] Miladis Germain MD [address] [place] [address] Scheduled Orders Name Type Priority Associated Diagnoses Orde r Schedule MFM [facility] FOLLOW UP EACH FETUS Medical Imaging Routine Family history of cardiac disorder Multigravida of advanced maternal age in second trimester Obesity in , antepartum Low-lying placenta Encounter for anatomic survey 19 weeks gestation of Other specified related conditions, second trimester 6 Occurrences starting 02/10/2024 until 08/12/2024 Health Maintenance Due Date Last Done Comments [...] as of this encounter Visit Diagnoses Diagnosis Family history of cardiac disorder- Primary Family history of other cardiovascular diseases Multigravida of advanced maternal age in second trimester Obesity in , antepartum Obesity complicating , childbirth, or the puerperium, antepartum condition or complication Low-lying placenta Hemorrhage from placenta previa, unspecified as to episode of care Encounter for anatomic survey 19 weeks gestation of state, incidental Other specified related conditions, second trimester documented in this encounter Care Teams Hydrogen Plant Operator Relationship Specialty Start Date End Date Miladis Germain MD [address] [facility] [place] [address] PCP - General Internal Medicine 03/25/22 documented as of this encounter
--- OUTSIDE RECORDS SUMMARY | 2024-06-19 05:33 | External Medical Summary | Summary of Care ---
Author Name Unknown Organization [facility] Address [address] [place] [address] Phone [phone] Care Team Providers Care Primer Inserting Machine Adjuster Name Role Phone Miladis Germain MD Primary Care Provider Encounter Details Date Type Department Care Team (Late st Contact Info) Description 01/23/2024 Orders Only Outcomes Research Department [address] [place] [address] Pratima Fountain CHRA [employer] Other*[id number] Allergies Active Allergy Reactions Criticality Noted Date Comments Cat Dander 12/21/2023 Dog Dander 12/21/2023 Horse-Derived Products 12/21/2023 documented as of this encounter (statuses as of 01/23/2024) Medications Medication Sig Dispensed Refills Start Date End Date Status diphenhydrAMINE HCl 25 MG Oral Capsule Take 1 Capsule by mouth every 6 hours as needed for Itching. 0 Active 28-0.8 MG Oral Tablet Take by mouth. 0 Active documented as of this encounter (statuses as of 01/23/2024) Active Problems Problem Noted Date Diagnosed Date [...] is considering cffDNA screening. Advised to notify [facility] if she desires cffDNA testing to [...] as of this encounter (statuses as of 01/23/2024) Immunizations Name Administration Dates Next Due COVID-19 mRNA, LNP-s, No Pre serve, 2-Dose Series ([employer]) 03/04/2021,02/11/2021 Seasonal Influenza, PF, 6 M & [...] money to get more. Never true 11/27/2023 [place] Depression Scale Answer Date Recorded [place] Depression Scale Total 5 12/16/2023 The thought [...] Description 02/24/2024 7:30 AM EDT Office Visit Child Care Specialist OB Maternal Medicine [facility] Wolfgang Childers [address] [place] [address] [address] [place] [address] Mariama [facility]arkar, DO [address] [facility] [address] 02/24/2024 7:30 AM EDT Imaging Maternal Medicine [facility] Wolfgang Childers [address] [place] [address] [address] [place] [address] 02/28/2024 8:00 AM EDT Office Visit Gynecology/Obstetrics [facility] [address] [place] [address] Rachel Shafer CRNP [address] [place] [address] 06/06/2024 8:40 AM EDT Office Visit Family Practice [facility] [address] [place] [address] Miladis Germain MD [address] [place] [address] Health Maintenance Due Date Last Done Comments [...] this encounter Visit Diagnoses Diagnosis [employer] Other*[id number] documented in this encounter Care Teams Primer Inserting Machine Adjuster Relationship Specialty Start Date End Date Miladis Germain MD [address] [place] [address] PCP - General Internal Medicine 03/25/22 documented as of this encounter
--- OUTSIDE RECORDS SUMMARY | 2024-06-19 05:33 | External Medical Summary ---
Author Name Unknown Address Unknown Organization K01:[facility] [address] [place] [address] Laboratory Report Ordering Provider Test Date Status SAROJ BROWN 04/12/2024 09:40:39 Final Observation Date Value Abnormality Reference (Units ) Status Treponema pallidum Ab [Presence] in Serum by Immunoassay 04/12/2024 09:40:39 Nonreactive Nonreactive Final No serologic evidence of syp hilis. No additional testing clinicially indicated at this time. Consider repeat testing in 2-4 weeks if acute or primary syphilis is suspected. Performing Location [facility] [place] [address] [place] [address]
--- OUTSIDE RECORDS SUMMARY | 2024-06-19 05:33 | External Medical Summary ---
Author Name Unknown Address Unknown Organization K01:[facility] [place] [address] [place] [address] Laboratory Report Ordering Provider Test Date Status SAROJ BROWN 04/12/2024 09:40:39 Final Observation Date Value Abnormality Reference (Units ) Status SYNC LEUKOCYTES IN BLOOD BY AUTOMATED COUNT 04/12/2024 09:40:39 8.51 4.00-10.80 (K/uL) Final Segs 04/12/2024 09:40:39 77.8 Above high normal 40.0-75.0 (%) Final Lymphs % 04/12/2024 09:40:39 16.7 Below low normal 18.0-42.0 (%) Final Monos 04/12/2024 09:40:39 3.9 1.0-11.0 (%) Final Eosinophils 04/12/2024 09:40:39 0.7 0.0-6.0 (%) Final Basos 04/12/2024 09:40:39 0.2 0.0-2.0 (%) Final Immature Granulocyte, Percent 04/12/2024 09:40:39 0.7 0.0-2.0 (%) Final Absolute Segs 04/12/2024 09:40:39 6.62 1.80-7.70 (K/uL) Final Lymphs, absolute 04/12/2024 09:40:39 1.42 1.00-4.80 (K/ul) Final Monos, Abs 04/12/2024 09:40:39 0.33 0.00-1.10 (K/uL) Final Eos, Abs 04/12/2024 09:40:39 0.06 0.00-0.70 (K/uL) Final Basos, Abs 04/12/2024 09:40:39 0.02 0.00-0.20 (K/uL) Final Immature Granulocytes, Number 04/12/2024 09:40:39 0.06 0.00-0.20 (K/uL) Final Performing Location [facility] [place] - [address] [facility] [address]
--- OUTSIDE RECORDS SUMMARY | 2024-06-19 05:33 | External Medical Summary ---
Author Name Unknown Address Unknown Organization K01:[facility] [place] - [facility] [address] [place] [address] Laboratory Report Ordering Provider Test Date Status SAROJ BROWN 04/12/2024 09:40:39 Final Observation Date Value Abnormality Reference (Units ) Status Creatinine 04/12/2024 09:40:39 0.5 0.5-1.0 (mg/dL) Final Glomerular filtration rate/1.73 sq M.predicted [Volume Rate/Area] in Serum, Plasma or Blood by Creatinine-based formula (CKD-EPI) 04/12/2024 09:40:39 >90 >=60 (mL/min) Final eGFR is calculated based on the CKD-EPI 2020 equation Performing Location LAB[facility] [place] - [address] [place] [address]
--- OUTSIDE RECORDS SUMMARY | 2024-06-19 05:33 | External Medical Summary | Summary of Care ---
Author Name Unknown Organization [facility] Address [address] [place] [address] Phone [phone] Care Team Providers Care Cement Truck Driver Name Role Phone Miladis Germain MD Primary Care Provider Reason for Visit * Reason Comments Outpatient Testing Encounter Details Date Type Department Care Team (Late st Contact Info) Description 04/12/2024 8:20 AM EDT Laboratory Laboratory, [facility] [address] [place] [address] [facility] [address] [place] [address] [employer] Research Other*[id number]; Multigravida of advanced maternal age in second trimester Allergies Active Allergy Reactions Criticality [...] MG Oral Tablet Take by mouth. Active documented as of this encounter (statuses [...] surgery but has ongoing follow-up for same. [facility] recommending echo Last Assessment & Plan: echo [...] is considering cffDNA screening. Advised to notify [facility] if she desires cffDNA testing [...] mRNA, LNP-s, No Pre serve, 2-Dose Series ([employer]) 03/04/2021,02/11/2021 Seasonal Influenza, PF, 6 M & [...] money to get more. Never true 11/27/2023 [place] Depression Scale Answer Date Recorded [place] Depression Scale Total 5 12/16/2023 The [...] Contact Info) Description 04/12/2024 10:15 AM EDT Imaging Maternal Medicine Imaging, [facility] [place] [phone] 04/12/2024 10:15 AM EDT Office Visit Fire Alarm Dispatcher Obstetrics Maternal Medicine, Rosario [facility] [address] [place] [address] Mariama Sarkar DO [address] [place] [address] 04/23/2024 7:45 AM EDT Office Visit Gynecology/Obstetrics [facility] [address] [place] [address] Lanette Vitale PA-C [address] [place] [address] 05/03/2024 9:30 AM EDT Imaging Maternal Medicine Imaging, [facility]ario Velezs [address] [place] [phone] 05/03/2024 9:30 AM EDT Office Visit Fire Alarm Dispatcher Obstetrics Maternal Medicine, [facility] V[facility]zs [address] [place] [address] Mariama Sarkar, DO [address] [place] [address] 05/08/2024 8:00 AM EDT Office Visit Gynecology/Obstetrics [facility] [address] [place] [address] Rachel Shafer CRNP [address] [place] [address] 05/29/2024 8:00 AM EDT Office Visit Gynecology/Obstetrics [facility] [address] [place] [address] Rachel Shafer CRNP [address] [place] [address] 05/31/2024 8:45 AM EDT Imaging Maternal Medicine Imaging, Rosario Velezs [address] [place] [address] 06/05/2024 8:00 AM EDT Office Visit Gynecology/Obstetrics [facility] [address] [place] [address] Rachel Shafer CRNP [address] [place] [address] 06/06/2024 8:40 AM EDT Office Visit Family Practice [facility] [address] [place] [address] Miladis Germain MD [address] [place] [address] 06/12/2024 8:00 AM EDT Office Visit Gynecology/Obstetrics [facility] [address] [place] [address] Rachel Shafer CRNP [address] [place] [address] 06/19/2024 8:00 AM EDT Office Visit Gynecology/Obstetrics [facility] [address] [place] [address] Rachel Shafer CRNP [address] [place] [address] 06/26/2024 8:30 AM EDT Office Visit Gynecology/Obstetrics [facility] [address] [place] [address] Mayuri Dove CRNP [address] [place] [address] Pending Results Name Type Priority Associated Diagnoses Date /Time MYCODE SUBSEQUENT ADULT Lab Routine [employer] Other*[id number] 04/12/2024 9:40 AM EDT 50-G GESTATIONAL GLUCOSE, 1 HOUR Lab Routine Multigravida of advanced maternal age in second trimester 04/12/2024 9:40 AM EDT CBC WITH WBC DIFFERENTIAL AND ANEMIA REFLEX WORKUP Lab Routine Multigravida of advanced maternal age in second trimester 04/12/2024 9:40 AM EDT SYPHILIS ANTIBODY SCREEN WITH REFLEX TO RPR Lab Routine Multigravida of advanced maternal age in second trimester 04/12/2024 9:40 AM EDT MYCODE SST1 Lab Routine [employer] Other*[id number] 04/12/2024 9:40 AM EDT MYCODE SST2 Lab Routine [employer] Other*[id number] 04/12/2024 9:40 AM EDT ANEMIA CBC Lab Routine Multigravida of advanced maternal age in second trimester 04/12/2024 9:40 AM EDT DIFFERENTIAL, AUTOMATED Lab Routine Multigravida of advanced maternal age in second trimester 04/12/2024 9:40 AM EDT ANEMIA REFLEX CHEMISTRY HOLD Lab Routine Multigravida of advanced maternal age in second trimester 04/12/2024 9:40 AM EDT SYPHILIS ANTIBODY SCREEN Lab Routine Multigravida of advanced maternal age in second trimester 04/12/2024 9:40 AM EDT Health Maintenance Due Date Last [...] this encounter Visit Diagnoses Diagnosis [employer] Other*[id number] Multigravida of advanced maternal age in second trimester documented in this encounter Care Teams Cement Truck Driver Relationship Specialty Start Date End Date Miladis Germain MD [address] [place] [address] PCP - General Internal Medicine 03/25/22 documented as of this encounter
--- OUTSIDE RECORDS SUMMARY | 2024-06-19 05:33 | External Medical Summary | Summary of Care ---
Author Name Unknown Organization [facility] Address [address] [place] [address] Phone [phone] Care Team Providers Care Core Stripper Name Role Phone Miladis Germain MD Primary Care Provider Encounter Details Date Type Department Care Team (Late st Contact Info) Description 02/10/2024 10:45 AM EDT Office Visit Family Service Worker OB Maternal Medicine [facility] Wolfgang Childers [address] [place] [address] [address] [place], [place] [id number] Mariama Sarkar, DO [address], [place] [id number] Family history of cardiac disorder*; Multigravida of [...] is considering cffDNA screening. Advised to notify [facility] if she desires cffDNA testing to [...] money to get more. Never true 11/27/2023 [place] Depression Scale Answer Date Recorded [place] Depression Scale Total 5 12/16/2023 The thought [...] Gynecology/Obstetrics Alyce Weiss [address] [place] [address] Rachel Shafer CRNP [address] [place] [address] 03/07/2024 8:00 AM EDT Imaging Radiology, [address] [address] 03/29/2024 1:45 PM EDT Imaging Maternal Medicine Imaging, Rosario Weiss [address] [place] [address] 05/02/2024 8:00 AM EDT Imaging Radiology, [address] [place] [place] [address] 06/06/2024 8:40 AM EDT Office Visit Family Practice [facility] [address] [place] [address] Miladis Germain MD [address] [place] [address] Scheduled Orders Name Type Priority Associated Diagnoses Orde r Schedule MFM [facility] FOLLOW UP EACH FETUS Medical Imaging Routine [...] trimester documented in this encounter Care Teams Core Stripper Relationship Specialty Start Date End Date Miladis Germain MD [address] [facility] [place] [address] PCP - General Internal Medicine 03/25/22 documented as of this encounter
--- OUTSIDE RECORDS SUMMARY | 2024-06-19 05:33 | External Medical Summary | Summary of Care ---
Author Name Unknown Organization [facility] Address [address] [place] [address] Phone [phone] Care Team Providers Care Hollock Maker Name Role Phone Miladis Germain MD Primary Care Provider Encounter Details Date Type Department Care Team (Late st Contact Info) Description 03/07/2024 8:00 AM EDT Office Visit Pastoral Counselor Obstetrics Maternal Medicine, [address] [address] Mariama Sarkar, DO [address] [place], [place] [phone] Obesity in , antepartum*; Multigravida of advanced maternal age in second trimester; 23 weeks gestation of ; Family history of cardiac disorder Allergies Active Allergy Reactions Criticality Noted Date Comments Cat Dander 12/21/2023 Dog Dander 12/21/2023 Horse-Derived Products 12/21/2023 documented as of this encounter (statuses as of 03/07/2024) Medications Medication Sig Dispensed Refills Start Date End Date Status diphenhydrAMINE HCl 25 MG Oral Capsule Take 1 Capsule by mouth every 6 hours as needed for Itching. 0 Active 28-0.8 MG Oral Tablet Take by mouth. 0 Active documented as of this encounter (statuses as of 03/07/2024) Active Problems Problem Noted Date Diagnosed Date [...] surgery but has ongoing follow-up for same. [facility] recommending echo Last Assessment & Plan: echo [...] is considering cffDNA screening. Advised to notify [facility] if she desires cffDNA testing to [...] as of this encounter (statuses as of 03/07/2024) Immunizations Name Administration Dates Next Due COVID-19 mRNA, LNP-s, No Pre serve, 2-Dose Series ([employer]) 03/04/2021,02/11/2021 Seasonal Influenza, PF, 6 M & [...] money to buy more. Never true 11/27/19 Within the past 12 months, t he food you bought just didn't last and you didn't have money to get more. Never true 11/27/2023 [place] Depression Scale Answer Date Recorded [place] Depression Scale Total 5 12/16/2023 The thought [...] this encounter Progress Notes * Mariama Sarkar, DO - 03/07/2024 2:35 PM EDT Yoselin presented today at 23w1d for an ultrasound for the following indications: Obesity in , antepartum Multigravida of advanced maternal age in second trimester 23 weeks gestation of Family history of cardiac disorder Ultrasound summary: Patient presented at 23w 1d for growth assessment and echocardiogram. No evidence of structural cardiac abnormalities. Normal growth with EFW 498 g. Normal ABIMAEL at normal. I reviewed the ultrasound images. Yoselin was [...] this patient. Please call with any questions. Marimaa Sarkar DO 03/07/2024 2:35 PM documented in this encounter Plan of Treatment Upcoming Encounters Date Type Department Care Team (Late st Contact Info) Description 03/26/2024 7:45 AM EDT Office Visit Gynecology/Obstetrics Alyce Weiss [address] [place] [address] Lanette iVtale PA-C [address] [place] [address] 04/12/2024 9:45 AM EDT Office Visit Gynecology/Obstetrics Alyce Weiss [address] [place] [address] Macie Roman PA-C [address] [place] [address] [place] [address] 04/12/2024 10:15 AM EDT Imaging Maternal Medicine Imaging Rosario Weiss [address] [place] [address] 04/23/2024 7:45 AM EDT Office Visit Gynecology/Obstetrics Alyce Weiss [address] [place] [address] Lanette Vitale PA-C [address] [place] [address] 05/03/2024 9:30 AM EDT Imaging Maternal Medicine Imaging Rosairo Weiss [address] [place] [address] 05/08/2024 8:00 AM EDT Office Visit Gynecology/Obstetrics [facility] [address] [place] [address] Rachel Shafer CRNP [address] [place] [address] 05/29/2024 8:00 AM EDT Office Visit Gynecology/Obstetrics [facility] [address] [place] [address] Rachel Shafer CRNP [address] [place] [address] 05/31/2024 8:45 AM EDT Imaging [facility]aternal Medicine [facility] [address] [place] [address] 06/05/2024 8:00 AM EDT Office Visit Gynecology/Obstetrics [facility] [address] [place] [address] Rachel Shafer CRNP [address] [place] [address] 06/06/2024 8:40 AM EDT Office Visit Family Practice [facility] [address] [place] [address] Miladis Germain MD [address] [place] [address] 06/12/2024 8:00 AM EDT Office Visit Gynecology/Obstetrics [facility] [address] [place] [address] Rachel Shafer CRNP [address] [place] [address] 06/19/2024 8:00 AM EDT Office Visit Gynecology/Obstetrics [facility] [address] [place] [address] Rachel Shafer CRNP [address] [place] [address] 06/26/2024 8:30 AM EDT Office Visit Gynecology/Obstetrics Alyce Weiss [address] [place] [address] Mayuri Dove CRNP [address] [place] [address] Health Maintenance Due Date Last Done Comments [...] complication Multigravida of advanced maternal age in second trimester 23 weeks gestation of state, incidental Family history of cardiac disorder Family history of other cardiovascular diseases documented in this encounter Care Teams Hollock Maker Relationship Specialty Start Date End Date Miladis Germain MD [address] [place] [address] PCP - General Internal Medicine 03/25/22 documented as of this encounter
--- OUTSIDE RECORDS SUMMARY | 2024-06-19 05:33 | External Medical Summary | Summary of Care ---
Author Name Unknown Organization [facility] Address [address] [place] [address] Phone [phone] Care Team Providers Care Milk Runner Name Role Phone Miladis Germain MD Primary Care Provider Reason for Visit * Reason Comments Return Visit Encounter Details Date Type Department Care Team (Late st Contact Info) Description 02/28/2024 8:00 AM EDT Office Visit Gynecology/Obstetric s Alyce Weiss [address] [place] [address] Rachel Shafer CRNP [address] [place] [address] Multigravida of advanced maternal age in second trimester*; History of precipitous delivery; Obesity in , antepartum; Family history of cardiac disorder Allergies Active Allergy Reactions Criticality Noted Date Comments Cat Dander 12/21/2023 Dog Dander 12/21/2023 Horse-Derived Products 12/21/2023 documented as of this encounter (statuses as of 02/28/2024) Medications Medication Sig Dispensed Refills Start Date End Date Status diphenhydrAMINE HCl 25 MG Oral Capsule Take 1 Capsule by mouth every 6 hours as needed for Itching. 0 Active 28-0.8 MG Oral Tablet Take by mouth. 0 Active documented as of this encounter (statuses as of 02/28/2024) Active Problems Problem Noted Date Diagnosed Date [...] is considering cffDNA screening. Advised to notify [facility] if she desires cffDNA testing [...] as of this encounter (statuses as of 02/28/2024) Immunizations Name Administration Dates Next Due COVID-19 mRNA, LNP-s, No Pre serve, 2-Dose Series ([employer]) 03/04/2021,02/11/2021 Seasonal Influenza, PF, 6 M & [...] money to get more. Never true 11/27/2023 [place]ol[place] Depression Scale Answer Date Recorded [place]ai Depression Scale Total 5 12/16/2023 The thought [...] Sign Reading Time Taken Comments Blood Pressure 106/64 02/28/2024 7:54 AM EDT Pulse - - Temperature - - Respiratory Rate - - Oxygen Saturation - - Inhaled Oxygen Concentration - - Weight 106.6 kg (235 lb) 02/28/2024 7:54 AM EDT Height 162.6 cm (5' 4") 02/28/2024 7:54 AM EDT Body Mass Index 40.34 02/28/2024 7:54 AM EDT documented in this encounter Progress Notes * Rachel Shafer CRNP - 02/28/2024 8:08 AM EDT 22w No concerns. Baby is active. No contractions, bleeding, LOF. Had anatomy u/s with MFM, has low lying placenta. Has f/u scheduled. MATILDA Foster * Teresa Kyle LPN - 02/28/2024 7:54 AM EDT 22w0d Denies nay concerns documented in this encounter Plan of Treatment Upcoming Encounters Date Type Department Care Team (Late st Contact Info) Description 03/07/2024 8:00 AM EDT Imaging Radiology, [address] [address] 03/26/2024 7:45 AM EDT Office Visit Gynecology/Obstetrics [facility] [address] [place] [address] Lanette Vitale PA-C [address] [place] [address] 04/12/2024 9:45 AM EDT Office Visit Gynecology/Obstetrics [facility] [address] [place] [address] Macie Roman PA-C [address] [place] [address] [place] [address] 04/12/2024 10:15 AM EDT Imaging Maternal Medicine Imaging, [facility] [address] [place] [address] 05/02/2024 8:00 AM EDT Imaging Radiology, [address] [address] 06/06/2024 8:40 AM EDT Office Visit Family Practice [facility] [address] [place] [address] Miladis Germain MD [address] [place] [address] Health Maintenance Due Date Last Done Comments [...] diseases documented in this encounter Care Teams Milk Runner Relationship Specialty Start Date End Date Miladis Germain MD [address] [place] [address] PCP - General Internal Medicine 03/25/22 documented as of this encounter
--- OUTSIDE RECORDS SUMMARY | 2024-06-19 05:33 | External Medical Summary ---
Author Name Unknown Address Unknown Organization [id number]:LABORATORY [facility] - [address] [place] [address] Laboratory Report Ordering Provider Test Date Status SAROJ BROWN 04/12/2024 09:40:39 Final Observation Date Value Abnormality Reference (Units ) Status Ferritin 04/12/2024 09:40:39 20 13-150 (ng /mL) Final Postmenopausal women have hi gher ferritin levels than pre-menopausal women. The above reference interval is based on pre-menopausal women. Performing Location LABORATORY [facility] - [address] [place] [address]
--- OUTSIDE RECORDS SUMMARY | 2024-06-19 05:33 | External Medical Summary ---
Author Name Unknown Address Unknown Organization [id number]:LABORATORY [facility] [place] - [address] [place] [address] Laboratory Report Ordering Provider Test Date Status SAROJ BROWN 04/12/2024 09:40:39 Final Observation Date Value Abnormality Reference (Units ) Status Iron 04/12/2024 09:40:39 92 33-151 (ug/dL) Final Iron-binding capacity 04/12/2024 09:40:39 432 Above high normal 250-425 (ug/dL) Final Transferrin Sat % 04/12/2024 09:40:39 21 15-55 (%) Final Performing Location LABORATORY [facility] [place] - [address] [place] [address]
--- OUTSIDE RECORDS SUMMARY | 2024-06-19 05:33 | External Medical Summary ---
Author Name Unknown Address Unknown Organization [id number] [address] [place] [address] Laboratory Report Ordering Provider Test Date Status SAROJ BROWN 04/12/2024 09:40:39 Final Observation Date Value Abnormality Reference (Units ) Status Glucose [Moles/volume] in Serum or Plasma --1 hour post 50 g glucose PO 04/12/2024 09:40:39 156 Above high normal 70-129 (mg/dL) Final Performing Location LABORATORY [facility] [place] 57-1 0 - [address] [place] [address]
--- OUTSIDE RECORDS SUMMARY | 2024-06-19 05:33 | External Medical Summary ---
Author Name Unknown Address Unknown Organization [id number]:LABORATORY [facility] [place] - [address] [place] [address] Laboratory Report Ordering Provider Test Date Status AMY BURGER 04/12/2024 09:40:39 Final Observation Date Value Abnormality Reference (Units ) Status MYCODE SPECIMEN-SST 04/12/2024 09:40:39 Freezing of extracted DNA, whole blood and/or serum. Final Performing Location LABORATORY C - [address] [place] [address]
--- OUTSIDE RECORDS SUMMARY | 2024-06-19 05:33 | External Medical Summary ---
Author Name Unknown Address Unknown Organization [id number]:LABORATORY [facility] [place] - [address] [place] [address] Laboratory Report Ordering Provider Test Date Status AMY BURGER 04/12/2024 09:40:39 Final Observation Date Value Abnormality Reference (Units ) Status MYCODE SPECIMEN-SST 04/12/2024 09:40:39 Freezing of extracted DNA, whole blood and/or serum. Final Performing Location LABORATORY [facility] - [address] [place] [address]
--- OUTSIDE RECORDS SUMMARY | 2024-06-19 05:33 | External Medical Summary ---
Author Name Unknown Address Unknown Organization [id number]:[facility]ATORY [facility] [place] - [facility] [place] [address] Laboratory Report Ordering Provider Test Date Status SAROJ BROWN 04/12/2024 09:40:39 Final Observation Date Value Abnormality Reference (Units ) Status Retic, % (auto) 04/12/2024 09:40:39 2.92 Above high normal 0.80-1.90 (%) Final Reticulocytes, Absolute 04/12/2024 09:40:39 118.6 Above high normal 31.3-100.1 (K/uL) Final Reticulocyte fraction, immature 04/12/2024 09:40:39 22.1 Above high normal 2.5-20.6 (%) Final Reticulocyte HGB 04/12/2024 09:40:39 31.2 29.7-37.4 (pg) Final Performing Location LABORATORY [facility] [place] - [address] [place] [address]
--- OUTSIDE RECORDS SUMMARY | 2024-06-19 05:34 | External Medical Summary ---
Author Name Unknown Address Unknown Organization [id number]:LABORATORY [facility] [place] - [address] [place] [address] Laboratory Report Ordering Provider Test Date Status AMY BURGER 01/20/2024 09:29:11 Final Observation Date Value Abnormality Reference (Units ) Status MYCODE SPECIMEN-SST 01/20/2024 09:29:11 Freezing of extracted DNA, whole blood and/or serum. Final Performing Location LABORATORY [facility] - [address] [place] [address]
--- OUTSIDE RECORDS SUMMARY | 2024-06-19 05:34 | External Medical Summary ---
Author Name Unknown Address Unknown Organization [id number]:LABORATORY [facility] [place] 57-10 - [address] [place] [address] Laboratory Report Ordering Provider Test Date Status JUDITH CARVALHO 01/19/2024 08:44:44 Final Observation Date Value Abnormality Reference (Units ) Status Glucose [Moles/volume] in Serum or Plasma --1 hour post 50 g glucose PO 01/19/2024 08:44:44 110 70-129 (mg/dL) Final Performing Location LABORATORY [facility] [place] 57-[address] 0 - [address] [place] [address]
--- OUTSIDE RECORDS SUMMARY | 2024-06-19 05:34 | External Medical Summary | Summary of Care ---
Author Name Unknown Organization [facility] Address [address] [facility] [address] Phone [phone] Care Team Providers Care Profiler Hand Name Role Phone Miladis Germain MD Primary Care Provider Reason for Visit * Reason Comments Return Visit Encounter Details Date Type Department Care Team (Late st Contact Info) Description 01/20/2024 8:45 AM EST Office Visit Gynecology/Obstetric s Alyce Weiss [address] [place] [address] Rachel Shafer CRNP [address] [place] [address] Multigravida of advanced maternal age in second trimester*; History of precipitous delivery; Obesity in , antepartum; Family history of cardiac disorder Allergies Active Allergy Reactions Criticality Noted Date Comments Cat Dander 12/21/2023 Dog Dander 12/21/2023 Horse-Derived Products 12/21/2023 documented as of this encounter (statuses as of 01/20/2024) Medications Medication Sig Dispensed Refills Start Date End Date Status diphenhydrAMINE HCl 25 MG Oral Capsule Take 1 Capsule by mouth every 6 hours as needed for Itching. 0 Active 28-0.8 MG Oral Tablet Take by mouth. 0 Active documented as of this encounter (statuses as of 01/20/2024) Active Problems Problem Noted Date Diagnosed Date Family history of cardiac disorder 12/21/2023 Overview: FOB born with congenital heart disorder (patent foramen ovale); has never required surgery but has ongoing follow-up for same. M recommending echo Last Assessment & Plan: Discussed [...] as of this encounter (statuses as of 01/20/2024) Immunizations Name Administration Dates Next Due COVID-19 [...] money to get more. Never true 11/27/2023 [place] Depression Scale Answer Date Recorded [place] Depression Scale Total 5 12/16/2023 The thought [...] Sign Reading Time Taken Comments Blood Pressure 118/72 01/20/2024 8:40 AM EST Pulse - - Temperature - - Respiratory Rate - - Oxygen Saturation - - Inhaled Oxygen Concentration - - Weight 104.8 kg (231 lb) 01/20/2024 8:40 AM EST Height - - Body Mass Index 39.65 12/16/2023 1:57 PM EST documented in this encounter Progress Notes * Rachel Shafer CRNP - 01/20/2024 9:30 AM EST 16w3d Answered questions regarding timing of appts, need for MFM. Completed early glucola yesterday, WNL. Aware of need to repeat in 3rd tri. Qnatal today. Has not felt FM thus far. No bleeding. Has anatomy u/s scheduled with MFM. MATILDA Foster * Justine Ngo LPN - 01/20/2024 8:40 AM EST 16w3d Denies vaginal bleeding/rom Absent movement BRUCE today- tylenol helping Discuss weight gain Noticing some incontinence with sneezing/coughing documented in this encounter Plan of Treatment Upcoming Encounters Date Type Department Care Team (Late st Contact Info) Description 02/22/2024 8:00 AM EDT Office Visit Gynecology/Obstetrics [facility] [address] [place] [address] Rachel Shafer CRNP [address] [place] [address] 02/24/2024 7:30 AM EDT Office Visit Noc Technician OB Maternal Medicine [facility] Wolfgang Childers [address] [place] [address] [address] [place] [address] Mariama Sarkar, DO [address] [facility] [place] [address] 02/24/2024 7:30 AM EDT Imaging Maternal Medicine [facility] Wolfgang Childers [address] [place] [address] Dr [address] [place] [address] 06/06/2024 8:40 AM EDT Office Visit Family Practice [facility] [address] [place] [address] Miladis Germain MD [address] [place] [address] Pending Results Name Type Priority Associated Diagnoses Date /Time QNATAL ADVANCED (QUEST) Lab Routine Multigravida of advanced maternal age in second trimester 01/20/2024 9:29 AM EST Scheduled Orders Name Type Priority Associated Diagnoses Orde r Schedule QNATAL ADVANCED ([facility]) Lab Routine Multigravida of advanced maternal age in second trimester Expected: 01/20/2024, Expires: 01/19/2025 Health Maintenance Due Date Last Done Comments [...] diseases documented in this encounter Care Teams Profiler Hand Relationship Specialty Start Date End Date Miladis Germain MD [address] [place] [address] PCP - General Internal Medicine 03/25/22 documented as of this encounter
--- OUTSIDE RECORDS SUMMARY | 2024-06-19 05:34 | External Medical Summary | Summary of Care ---
Author Name Unknown Organization [facility] Address [address] [place] [address] Phone [phone] Care Team Providers Care Paint Laboratory Technician Name Role Phone Miladis Germain MD Primary Care Provider Reason for Visit * Reason Comments Outpatient Testing Encounter Details Date Type Department Care Team (Late st Contact Info) Description 01/19/2024 7:40 AM EST Laboratory Laboratory, [facility] [address] [place] [address] [facility] [address] [place] [address] Multigravida of advanced maternal age in first trimester; Obesity, Class II, BMI 35-39.9 Allergies Active Allergy Reactions Criticality Noted Date Comments Cat Dander 12/21/2023 Dog Dander 12/21/2023 Horse-Derived Products 12/21/2023 documented as of this encounter (statuses as of 01/19/2024) Medications Medication Sig Dispensed Refills Start Date End Date Status diphenhydrAMINE HCl 25 MG Oral Capsule Take 1 Capsule by mouth every 6 hours as needed for Itching. 0 Active 28-0.8 MG Oral Tablet Take by mouth. 0 Active documented as of this encounter (statuses as of 01/19/2024) Active Problems Problem Noted Date Diagnosed Date Family history of cardiac disorder 12/21/2023 Overview: FOB born with congenital heart disorder (patent foramen ovale); has never required surgery but has ongoing follow-up for same. Last Assessment & Plan: Discussed that family [...] is 36.89. Class 2 Early glucola ordered. Last Assessment & Plan: CONSIDERATIONS: Discussed obstetrical [...] is considering cffDNA screening. Advised to notify [facility] if she desires cffDNA testing to [...] as of this encounter (statuses as of 01/19/2024) Immunizations Name Administration Dates Next Due COVID-19 mRNA, LNP-s, No Pre serve, 2-Dose Series ([employer]) 03/04/2021,02/11/2021 Seasonal Influenza, PF, 6 M & [...] money to get more. Never true 11/27/2023 [place] Depression Scale Answer Date Recorded [place] Depression Scale Total 5 12/16/2023 The thought [...] Description 02/24/2024 7:30 AM EDT Office Visit Bungy Jump Master [facility] Wolfgang Childers [address] [place] [address] [address] [place] [id number] Mariama [facility]arkar DO [address] [facility] [address] 02/24/2024 7:30 AM EDT [facility] Medicine [facility] [address] [place] [address] 06/06/2024 8:40 AM EDT Office Visit [facility] [address] [place] [address] Miladis Germain MD [address] [place] [address] Pending Results Name Type Priority Associated Diagnoses Date /Time 50-G GESTATIONAL GLUCOSE, 1 HOUR Lab Routine Multigravida of advanced maternal age in first trimester Obesity, Class II, BMI 35-39.9 01/19/2024 8:44 AM EST Health Maintenance Due Date Last Done Comments [...] Diagnosis Multigravida of advanced maternal age in first trimester Obesity, Class II, BMI 35-39.9 Morbid obesity documented in this encounter Care Teams Paint Laboratory Technician Relationship Specialty Start Date End Date Miladis Germain MD [address] [place] [address] PCP - General Internal Medicine 03/25/22 documented as of this encounter
--- OUTSIDE RECORDS SUMMARY | 2024-06-19 05:34 | External Medical Summary ---
Author Name Unknown Address Unknown Organization : Laboratory Report Ordering Provider Test Date Status JUDITH CARVALHO 01/20/2024 09:29:11 Final Observation Date Value Abnormality Reference (Units ) Status NUMBER OF FETUSES? 01/20/2024 09:29:11 1 Final ADVANCED MATERNAL AGE? 01/20/2024 09:29:11 YES Final ABNORMAL MICHI? 01/20/2024 09:29:11 NO Final ABNORMAL US? 01/20/2024 09:29:11 NOT GIVEN Final PERSONAL/FAM HISTORY? 01/20/2024 09:29:11 NOT GIVEN Final INTERPRETATION 01/20/2024 09:29:11 SEE BELOW Final This specimen showed an expe cted representation of
chromosome 21, 18, and 13 material. Results were
not analyzed or reported for microdeletions. See
'Limitations' below. TRISOMY 21 (T21) 01/20/2024 09:29:11 Negative Final TRISOMY 18 (T18) 01/20/2024 09:29:11 Negative Final TRISOMY 13 (T13) 01/20/2024 09:29:11 Negative Final Y CHROMOSOME 01/20/2024 09:29:11 Opted Out Final Y CHR. INTERPRETATION 01/20/2024 09:29:11 SEE BELOW Final sex determination was not included in this
testing. SEX CHROMOSOME 01/20/2024 09:29:11 No aneuploidy Final SEX CHROMOSOME INTERP 01/20/2024 09:29:11 SEE BELOW Final No apparent abnormality was detected. See
'Limitations' below. MICRODELETION 01/20/2024 09:29:11 Opted Out Final MICRODELETION INTERP 01/20/2024 09:29:11 SEE BELOW Final Results were not analyzed or reported for
microdeletions. GESTATIONAL AGE (IN WEEKS) 01/20/2024 09:29:11 18 Final GESTATIONAL AGE (IN DAYS) 01/20/2024 09:29:11 3 Final FRACTION 01/20/2024 09:29:11 6.30% Final LABORATORY COMMENTS 01/20/2024 09:29:11 SEE BELOW Final Laboratory testing supervise d and results
monitored by Kristal Jaime, Ph.D., DABMGG,
[facility]. LIMITATIONS 01/20/2024 09:29:11 SEE BELOW Final QNatal(R) Advanced is a cell -free DNA test that
screens for increased risk of certain
chromosomal abnormalities that may cause
defects, including Trisomy 21 (Down syndrome),
Trisomy 18, Trisomy 13, and certain sex chromosome
abnormalities (i.e., 45,X, 47,XXY, 47,XXX, and
47,XYY), as well as sex. In addition, if
selected as an option, QNatal(R) Advanced can
screen for certain microdeletions (i.e., 22q, 5p,
1p36, 15q, 11q, 8q, and 4p) that may cause
defects. This test does not assess the risk of
abnormalities such as neural tube defects or
ventral wall defects and should not be considered
in isolation from other clinical findings and
laboratory test results.
QNatal(R) Advanced has been validated in tariq
pregnancies for the trisomies and sex chromosome
abnormalities listed above, as well as for
microdeletions, and for the determination of
sex. Sex chromosome aneuploidy analysis is only
performed in tariq pregnancies. The test has
also been validated in twin pregnancies for the
trisomies listed above and for microdeletions, but
not for the sex chromosome abnormalities due to
limited data. The test has not been validated in
higher order pregnancies (more than two) because
limited data is available.
Microdeletion screening is limited to the
specified microdeletion regions (see
'Methodology'). The Y chromosome is analyzed for
the determination of sex. The sensitivity
and specificity of sex determination
analysis may be less than that of the Trisomy 21,
18, and 13 analysis and this determination can be
confounded by vanishing twin syndrome in
pregnancies that were originally multiple
gestation pregnancies. It should be noted that
QNatal(R) Advanced is a quantitative analysis of
maternal and placental cfDNA. As a result, the
accuracy of the screening test results may be
affected by the presence of chromosome
abnormalities or microdeletions that are maternal
or confined placental in origin. False positive
findings involving the examined chromosomes and
microdeletion regions may be due to maternal,
placental, or mosaicism, by vanishing twin
syndrome, or other unexplained causes. SPECIFICATIONS 01/20/2024 09:29:11 SEE BELOW Final Sensitivity Specificity
T21 >99.9% >99.9%
T18 >99.9% >99.9%
T13 >99.9% >99.9%
Accuracy
Y >99.9%
Performance of the QNatal Advanced
laboratory-developed test (LDT) has been
determined based on internal analytical
assessment. METHODOLOGY 01/20/2024 09:29:11 SEE BELOW Final Circulating cell-free (cf) D NA was isolated from
plasma followed by detection on a massively
parallel sequencing platform. Bioinformatic
analysis was performed to determine the
representation of chromosomes 21, 18, 13, X and Y
in circulating cell-free DNA. The representation
of sequences from the critical regions involved in
1p36 microdeletion syndrome (1p36),
Villarreal-Hirschhorn syndrome (4p), Cri-du-chat
syndrome (5p), Keli-Giedion syndrome (8p),
Sammie syndrome (11q), Prader Willi
syndrome/Angelman syndrome (15q), and DiGeorge
syndrome (22q) is evaluated for the detection of
microdeletions if requested. This test was
developed, and its performance characteristics
have been determined by [facility]. It has not been
cleared or approved by the U.S. Food and Drug
Administration. Performance characteristics refer
to the analytical performance of the test. This
test is performed pursuant to a license agreement
with [employer].
This test was developed and its analytical
performance characteristics have been determined
by [facility]. It has not been cleared or
approved by FDA. This assay has been validated
pursuant to the CLIA regulations and is used for
clinical purposes.
Test performed by [facility]
[address] [place] [address]

Hospice Fellow: Tanisha Hall MD,PHD,JOSE CARLOS
Test Reported by [facility],
[facility],
[address] [place], [place]
Tanner Cohen M.D., Ph.D., Director of Laboratories
, CLIA [id number] Performing Location
--- OUTSIDE RECORDS SUMMARY | 2024-06-19 05:34 | External Medical Summary | Summary of Care ---
Author Name Unknown Organization [facility] Address [address] [place] [address] Phone [phone] Care Team Providers Care Endodontic Assistant Name Role Phone Miladis Germain MD Primary Care Provider Encounter Details Date Type Department Care Team (Late st Contact Info) Description 01/04/2024 2:30 PM EST Office Visit Nurse Case Manager Obstetrics Maternal Medicine, [address] [address] Mariama Sarkar, DO [address] [place], [place] [id number] Obesity in , antepartum*; Multigravida of advanced maternal age in first trimester; Family history of cardiac disorder; 14 weeks gestation of ; Other specified related conditions, second trimester Allergies Active Allergy Reactions Criticality Noted Date Comments Cat Dander 12/21/2023 Dog Dander 12/21/2023 Horse-Derived Products 12/21/2023 documented as of this encounter (statuses as of 01/04/2024) Medications Medication Sig Dispensed Refills Start Date End Date Status diphenhydrAMINE HCl 25 MG Oral Capsule Take 1 Capsule by mouth every 6 hours as needed for Itching. 0 Active 28-0.8 MG Oral Tablet Take by mouth. 0 Active documented as of this encounter (statuses as of 01/04/2024) Active Problems Problem Noted Date Diagnosed Date [...] as of this encounter (statuses as of 01/04/2024) Immunizations Name Administration Dates Next Due COVID-19 mRNA, LNP-s, No Pre serve, 2-Dose Series (HepatoChem) 03/04/2021,02/11/2021 Seasonal Influenza, PF, 6 M & [...] money to get more. Never true 11/27/2023 [place] Depression Scale Answer Date Recorded [place] Depression Scale Total 5 12/16/2023 The thought [...] encounter Progress Notes * Mariama Sarkar, - 01/04/2024 4:17 PM EST Yoselin presented today at 14w1d for an ultrasound for the following indications: Obesity in , antepartum Multigravida of advanced maternal age in first trimester Family history of cardiac disorder 14 weeks gestation of Ultrasound summary: Single live IUP at 14w 1d consistent with dates. No evidence of cystic hygroma or early abnormalities. I reviewed the ultrasound images. Yoselin was given the opportunity to meet with me if she had any questions. Please refer to the ultrasound report for additional details about today's ultrasound examination. RECOMMENDATIONS: Recommend follow up ultrasound with MFM in 6 weeks for anatomy survey secondary to above indications. See prior formal MFM consultation note. Thank you for allowing us to participate in the care of this patient. Please call with any questions. Mariama Sarkar DO 01/04/2024 4:17 PM documented in this encounter Plan of Treatment Upcoming Encounters Date Type Department Care Team (Late st Contact Info) Description 01/19/2024 8:00 AM EST Laboratory Laboratory, [facility] [address] [facility] [place] [address] [facility] [place] [address] 01/19/2024 9:00 AM EST Office Visit Gynecology/Obstetrics [facility] [address] [facility] [place] [address] Rachel Shafer CRNP [address] [place] [address] 02/24/2024 7:30 AM EDT Office Visit Nurse Case Manager OB Maternal Medicine [facility] Wolfgang Childers [address] [place] [address] Dr [address] [facility] [place] [address] Mariama Sarkar DO [address] [facility] [place] [address] 02/24/2024 7:30 AM EDT Imaging Maternal Medicine [facility] Wolfgang Childers [address] [place] [address] [address] [place] [address] 06/06/2024 8:40 AM EDT Office Visit Family Practice [facility] [address] [place] [address] Miladis Germain MD [address] [place] [address] Scheduled Orders Name Type Priority Associated Diagnoses Orde r Schedule [facility] US MATERNAL 1ST FETUS Medical Imaging Routine Obesity in , antepartum Multigravida of advanced maternal age in first trimester Family history of cardiac disorder 14 weeks gestation of Other specified related conditions, second trimester 1 Occurrences starting 01/04/2024 until 04/03/2024 [facility] US PREG FOLLOW UP EACH FETUS Medical Imaging Routine Obesity in , antepartum Multigravida of advanced maternal age in first trimester Family history of cardiac disorder 14 weeks gestation of Other specified related conditions, second trimester 6 Occurrences starting 01/04/2024 until 07/04/2024 Health Maintenance Due Date Last Done Comments [...] complication Multigravida of advanced maternal age in first trimester Family history of cardiac disorder Family history of other cardiovascular diseases 14 weeks gestation of state, incidental Other specified related conditions, second trimester documented in this encounter Care Teams Endodontic Assistant Relationship Specialty Start Date End Date Miladis Germain MD [address] [place] [address] PCP - General Internal Medicine 03/25/22 documented as of this encounter
--- OUTSIDE RECORDS SUMMARY | 2024-06-19 05:34 | External Medical Summary ---
Author Name Unknown Address Unknown Organization K01:LABORATORY [facility] - [address] [place] [address] Laboratory Report Ordering Provider Test Date Status AMY BURGER 01/20/2024 09:29:11 Final Observation Date Value Abnormality Reference (Units ) Status TriQ SystemsODE SPECIMEN-LAV 01/20/2024 09:29:11 Freezing of extracted DNA, whole blood and/or serum. Final Performing Location LAB[facility]ATORY [facility] - [address] [place] [address]
--- OUTSIDE RECORDS SUMMARY | 2024-06-19 05:34 | External Medical Summary ---
Author Name Unknown Address Unknown Organization K01:[facility] [place] [address] [place] [address] Laboratory Report Ordering Provider Test Date Status AMY BURGER 01/20/2024 09:29:11 Final Observation Date Value Abnormality Reference (Units ) Status MYCODE SPECIMEN-SST 01/20/2024 09:29:11 Freezing of extracted DNA, whole blood and/or serum. Final Performing Location LABORATORY [facility] - [address] [place] [address]
--- OUTSIDE RECORDS SUMMARY | 2024-06-19 05:34 | External Medical Summary | Summary of Care ---
Author Name Unknown Organization [facility] Address [address] [place] [address] Phone [phone] Care Team Providers Care [employer] Name Role Phone Miladis Germain MD Primary Care Provider Reason for Visit * Reason Comments Outpatient Testing Encounter Details Date Type Department Care Team (Late st Contact Info) Description 01/20/2024 9:20 AM EST Laboratory Laboratory, [facility] [address] [place] [address] [facility] [address] [place] [address] [employer] Other*[id number]; Multigravida of advanced maternal age in second [...] money to get more. Never true 11/27/2023 [place] Depression Scale Answer Date Recorded [place] Depression Scale Total 5 12/16/2023 The thought [...] 02/22/2024 8:00 AM EDT [facility] [address] [place] [address] Rachel Shafer CRNP [address] [place] [address] 02/24/2024 7:30 AM EDT Office Visit Educational Interpreter [facility] Wolfgang Childers [address] [place] [address] [address] [facility] [address] Mariama Sarkar Medeiros, DO [address] [place] [address] 02/24/2024 7:30 AM EDT Imaging [facility] Wolfgang Childers [address] [place] [address] [address] [facility] [address] 06/06/2024 8:40 AM EDT Office Visit [facility] [address] [place] [address] Miladis Germain MD [address] [place] [address] Pending Results Name Type Priority Associated Diagnoses Date /Time MYCODE INITIAL ADULT Lab Routine [employer] Other*[id number] 01/20/2024 9:29 AM EST QNATAL ADVANCED (QUEST) Lab Routine Multigravida of advanced maternal age in second trimester 01/20/2024 9:29 AM EST MYCODE INITIAL ADULT-PINK Lab Routine [employer] Other*[id number] 01/20/2024 9:29 AM EST MYCODE SST1 Lab Routine [employer] Other*[id number] 01/20/2024 9:29 AM EST MYCODE SST2 Lab Routine [employer] Other*[id number] 01/20/2024 9:29 AM EST Health Maintenance Due Date Last [...] this encounter Visit Diagnoses Diagnosis [employer] Other*[id number] Multigravida of advanced maternal age in second trimester documented in this encounter Care Teams [employer] Relationship Specialty Start Date End Date Miladis Germain MD [address] [place] [address] PCP - General Internal Medicine 03/25/22 documented as of this encounter
--- NOTE | 2024-06-19 07:39 | Obstetrical Progress Note ---
Date of Service June 19, 2024 Assessment & Plan Admission and Anticipated Discharge Date Admission Date: June 19, 2024 Subjective Patient is seen and examined. She feels well, no complaints. Ambulating without dizziness Voiding without difficulty Tolerating regular diet with out N&V Bleeding is minimal No fever/ chills/ CP/ SOB/ N&V/ Leg pain Breast feeding without problems Vital Signs Height Weight Body Mass Index Blood Pressure Temperature Pulse Rate Respiratory Rate 5 ft 4 in 111.13 kg 42.0 136/76 36.8 C 89 18 06/19/24 03:06 06/19/24 03:06 06/19/24 03:06 06/19/24 06:05 06/19/24 05:05 06/19/24 06:05 06/19/24 06:05 Lab Results 06/19/24 06/19/24 06/19/24 Range/Units 03:17 03:17 03:17 WBC 11.61 H (4.8-10.8) K/ul RBC 4.53 (4.20-5.40) M/uL Hgb 12.6 (12.0-16.0) g/dl Hct 36.5 L (37.0-47.0) % MCV 80.6 (80.0-100.0) fL MCH 27.8 (25.0-34.0) pg MCHC 34.5 (32.0-36.0) g/dL RDW Std Deviation 39.6 (36.4-46.3) fL RDW Coeff of Jay 13.6 (11.5-14.5) % Plt Count 220 (130-400) K/uL MPV 11.0 (9.4-12.4) fL Blood Type A Positive Cancelled Antibody Screen NEGATIVE Cancelled PE: General: Alert, orientedx3, NAD Abd: soft, NT, fundus firm, below Umbilicus Perineum intact, Lochia rubra minimal Ext; NT, no edema AP: 43 yo s/p , ppd# 0 VSS Afebrile doing well Continue routine care All questions were answered Results & Data Vital Signs (Past 12 Hours) Vital Signs Temp Pulse Resp BP 06/19/24 06:05 18 06/19/24 06:05 89 136/76 06/19/24 05:51 100 H 139/77 06/19/24 05:36 101 H 130/83 06/19/24 05:35 18 06/19/24 05:20 83 139/67 06/19/24 05:05 36.8 C 18 06/19/24 05:05 95 H 139/62 06/19/24 04:51 96 H 143/65 H 06/19/24 04:50 36.3 C L 18 06/19/24 04:35 36.3 C L 18 06/19/24 04:35 96 H 133/64 06/19/24 04:20 36.3 C L 18 06/19/24 04:20 94 H 135/66 06/19/24 04:06 107 H 123/65 06/19/24 04:05 36.3 C L 18 06/19/24 03:06 18 06/19/24 02:50 82 114/60 06/19/24 02:47 18 06/19/24 02:47 36.8 C 18
[2024-06-19] MEDS ORDERED: NON-FORMULARY MEDICATION (Prenatal 1 TAB) PO SCH (09:00)
[2024-06-19] MEDS: PRENATAL VITAMIN 1 TAB PO SCH (09:06)
[2024-06-19] MEDS: DOCUSATE SODIUM 100 MG CAP PO SCH (09:06)
[2024-06-19] MEDS: BENZOCAINE 20% SPRY 85 APPLN/85 GM CAN EXT PRN (09:06)
[2024-06-19] MEDS: IBUPROFEN 600 MG TAB PO PRN (20:19)
[2024-06-20 09:20] LABS: Hematocrit (blood only) 38.2 % (37.0-47.0); Hemoglobin 12.7 g/dl (12.0-16.0); Mean Corpuscular Hemoglobin 27.5 pg (25.0-34.0); Mean Corpuscular Hgb Conc 33.2 g/dL (32.0-36.0); Mean Corpuscular Volume 82.9 fL (80.0-100.0); Mean Platelet Volume 10.9 fL (9.4-12.4); Platelet Count 215 K/uL (130-400); RDW Standard Deviation 42.2 fL (36.4-46.3); Red Blood Count 4.61 M/uL (4.20-5.40); White Blood Count 11.51 K/ul (4.8-10.8)
--- NOTE | 2024-06-20 11:09 | Obstetrical Progress Note ---
Date of Service June 20, 2024 Subjective Ambulation: ambulating normally Voiding: no voiding problems Passing Gas:: Yes Diet Tolerance:: regular diet Lochia:: Small Feeding Type:: breast feeding Current Pain Level(1-10): 0 doing well. plans for d/c today. Physical Exam Constitutional WD/WN, vitals as above Gastrointestinal (Abdomen) Inspection/Auscultation: abdomen normal to inspection abdomen soft and non-tender. fundus firm below U. Musculoskeletal Extremities: extremities normal to inspection Skin no rashes, warm and dry Neurologic patellar DTR's 2+ bilat, sensation intact Psychiatric A+Ox3, euthymic affect Results & Data Vital Signs (Past 12 Hours) Vital Signs Temp Pulse Resp BP Pulse Ox O2 Del Method 06/20/24 00:02 36.5 C 91 H 14 129/82 97 Room Air Laboratory Results Laboratory Results - last 72 hr 06/19/24 06/19/24 06/19/24 03:17 03:17 03:17 WBC 11.61 H RBC 4.53 Hgb 12.6 Hct 36.5 L MCV 80.6 MCH 27.8 MCHC 34.5 RDW Std Deviation 39.6 RDW Coeff of Jay 13.6 Plt Count 220 MPV 11.0 Blood Type A Positive Cancelled Antibody Screen NEGATIVE Cancelled 06/20/24 08:38 WBC 11.51 H RBC 4.61 Hgb 12.7 Hct 38.2 MCV 82.9 MCH 27.5 MCHC 33.2 RDW Std Deviation 42.2 RDW Coeff of Jay 14.0 Plt Count 215 MPV 10.9 Blood Type Antibody Screen
[2024-06-20 13:04] VITALS: RESP 18; TEMP 99.1; O2SAT 95
[2024-06-20 13:34] VITALS: BP 129/78; PULSE 91
[2024-06-20] MEDS ORDERED: bisacodyL 5 MG TABEC PO SCH (20:00)
[2024-06-21] MEDS ORDERED: bisacodyL 10 MG SUPP PR PRN
== END 2024-06-20 14:30 | disposition home or self-care (01) | DRG 807 ==
LOC: OPB 02:28 → 4S1 02:37 → 4E2 06:35